=== PATIENT | female | born 1995 | race Caucasian/White ===

== ENCOUNTER → 2018-05-14 14:59 | Outpatient (CLI) | payer BC, SELFPAY ==
[2018-05-18 04:07] LABS: HSV 1 By PCR Negative (Negative)
[2018-05-18 11:23] LABS: HSV 2 By PCR Negative (Negative)
== END ==
PROVIDERS: Visit Provider Obstetrics & Gynecology
DX: Z11.3 Encounter for screening for infections with a predominantly sexual mode of transmission (principal); A60.04 Herpesviral vulvovaginitis
CPT/HCPCS: 87529

== ENCOUNTER → 2018-12-01 14:30 | Outpatient (CLI) | payer BC, SELFPAY ==
[2018-12-01 16:59] LABS: HIV - WCH Non-Reactive (Nonreactive)
[2018-12-01 17:41] LABS: Chlamydia Trachomatis by PCR Negative (Negative); Neisserai gonorrhoeae by PCR Negative (Negative); Probe Check PASS; Sample Adequacy Control PASS; Specimen Processing Control PASS
[2018-12-03 11:09] LABS: HEPATITIS B SURFACE AG Negative (Negative); Hep C Antibodies <0.1 s/co ratio (0.0-0.9)
[2018-12-04 02:51] LABS: Rapid Plasmin Reagin (RPR) NONREACTIVE (NONREACTIVE)
[2018-12-05 15:21] LABS: HPV Reflexed? NOT INDICATED
== END ==
PROVIDERS: Visit Provider Obstetrics & Gynecology
DX: Z12.4 Encounter for screening for malignant neoplasm of cervix (principal); Z11.3 Encounter for screening for infections with a predominantly sexual mode of transmission
CPT/HCPCS: 36415; 86592; 86703; 86803; 87340; 87491; 87591; 88175; G0145

== ENCOUNTER 2020-04-24 11:33 | Emergency (ER) | payer BC, SELFPAY ==
[2020-04-24 11:35] VITALS: BP 128/71; PULSE 86; RESP 18; TEMP 36.3; O2SAT 99; BMI 22.9
[2020-04-24 11:38] VITALS: BP 128/71; PULSE 87; RESP 18; O2SAT 99
--- NOTE | 2020-04-24 11:50 | US_ITS ---
STUDY: FIRST TRIMESTER OBSTETRICAL ULTRASOUND REASON FOR EXAM: Female, 24 years old RLQ PAIN 2 DAYS, POSITIVE TEST AT HOME, HCG 657, UNKNOWN TRUE LMP ESTIMATES 03/22/2020 LMP: 03/22/2020 TECHNIQUE: Transvaginal TECHNICAL QUALITY: Adequate. PRIOR ULTRASOUND: None. FINDINGS: There is visualization of a single gestational sac in a normal intrauterine position. The mean sac diameter (MSD) measures 2.8 mm, indicating an estimated gestational age (EGA) of 4 weeks, 5 days. The gestational sac shape is within normal limits. There is no demonstrated yolk sac. The placenta is non-visualized. There is no demonstrated embryo ( pole). The estimated gestation age (EGA) by LMP is 4 weeks, 5 days. The estimated date of delivery (SHAY) by LMP is 12/27/2020. The estimated gestation age (EGA) by US is 4 weeks, 5 days. The estimated date of delivery (SHAY) by US is 12/27/2020. The uterus measures 4.6 cm x 3.9 cm x 3.2 cm. There is no demonstrated uterine fibroid. The cervix is closed. The right ovary measures 3.1 cm x 2.5 cm x 2.1 cm. There is no right ovarian cyst. There is no visualized right adnexal mass or complex lesion. The left ovary measures 2.6 cm 3.5 cm x 1.9 cm. There is no left ovarian cyst. There is no visualized left adnexal mass or complex lesion. There is no fluid in the cul de sac. US/Transvaginal w/Preg US IMPRESSION: Intrauterine gestational sac without a yolk sac or pole corresponding to 4 weeks 5 days. Electronically Signed: Flo Armstrong, at 14:05 EDT , Service support ,
--- NOTE | 2020-04-24 11:51 | ED.DCSUM_ITS ---
History of Present Illness Chief Complaint: Abd Pain Informant: Patient Pain: - - R mid-abd pain Onset: Days - 2 Context: Gradual Onset Timing: Continuous Quality: Aching Location: - - R mid abd Current Severity: Moderate Maximum Severity: Moderate Worsened by: Movement Relieved by: Remaining Still Issue: Negative for: Vaginal bleeding, Passing clots, Passing tissue Associated Symptoms: Missed Period. Negative for: Dysuria, Frequency, Urgency, Hematuria Last known menstrual period: unk; pt provides confusing hx/info Test: Positive, Urine, Home Sexually: Active, Single Partner P: 0 Ab: 0 Narrative: In trying to determine the patient's last normal menstrual cycle, she provides conflicting information. Currently it is 04/24, she states that she missed last month but her last period was 3 or 4 weeks ago, but yet she does not remember the last time she had bleeding. Positive home test, called her OB but since she is having pain was directed to the ER to rule out ectopic. Past Medical History - Allergies and Home Meds Allergies/Adverse Reactions: Allergies No Known Allergies Allergy (Verified 04/24/20 11:34) Primary Care Physician: NOT,DEFINED [NON-STAFF] - Past Medical History: None Drugs: None Review of Systems General: Denies: Chills, Fever, Malaise - No lightheadedness or near syncope/syncope, Sweats Eyes: Denies: Visual changes - bilaterally, Diplopia ENT: Denies: Rhinorrhea, Sore throat Cardiovascular: Denies: Chest pain, Palpitations Respiratory: Denies: Dyspnea, Cough, Dyspnea on exertion Gastrointestinal: Reports: Abdominal pain, Nausea. Denies: Vomiting, Diarrhea, Melena, Hematochezia Genitourinary: Denies: Dysuria, Hematuria, Frequency Musculoskeletal: Denies: Back pain, Swelling, Extremity Pain Skin: Denies: Rash, Wounds Neurological: Denies: Headache, Weakness, Numbness Physical Exam Vital Signs/Narrative: Vital Signs Temp Pulse Resp BP Pulse Ox 04/24/20 11:38 87 18 128/71 H 99 04/24/20 11:35 97.4 F L 86 18 128/71 H 99 Inital Vital Signs reviewed: Yes General: Well nourished, Well developed, - - Well-appearing, no NAD Head: Normocephalic, Atraumatic Eyes: Perrl, EOMI ENT: Moist mucous membranes, No rhinorrhea Neck: Supple, Nontender Cardiovascular: Regular rate, Regular rhythm, No murmurs. Negative for: Tachycardia Respiratory: No distress, CTA bilaterally, Chest nontender Abdomen: Soft, Nondistended, Normal bowel sounds, No masses, Tender - Mild right mid abdomen. Nontender right upper quadrant and pelvis. Negative for: Guarding, Rebound tenderness, Miller's sign Back: Nontender, Normal Inspection. Negative for: CVA tenderness Extremities: Nontender, No edema Skin: Normal color, No rash, No Trauma Neurological: Alert, Oriented x3, Cranial nerves II-XII grossly intact, Normal Strength, Normal Sensation, Normal Gait Psychological: Normal affect, Normal Mood Diagnostic/Tx/Re-eval Clinical Impression(s) from Imaging Studies Obstetrics Ultrasound 04/24/20 11:50 IMPRESSION: Intrauterine gestational sac without a yolk sac or pole corresponding to 4 weeks 5 days. Electronically Signed: Flo Dimplearistideselizabeth, at 14:05 EDT , Service support , Laboratory Tests 04/24/20 04/24/20 04/24/20 Range/Units 12:48 12:15 12:15 WBC 7.0 (4.4-11.0) K/mm3 RBC 4.22 (4.2-5.4) M/mm3 Hgb 13.5 (12.0-15.0) g/dL Hct 40.1 (37-47) % MCV 95.0 (81-99) fL MCH 32.0 (27.0-32.0) pg MCHC 33.7 (32-36) g/dL RDW Std Deviation 41.7 (35.1-43.9) fl RDW Coeff of Ronny 11.9 (11.6-14.6) % Plt Count 170 (150-450) K/mm3 MPV 10.7 (6.2-12.0) fl Immature Gran % (Auto) 0.300 (0.0-0.9) % Neut % (Auto) 76.5 H (47-70) % Lymph % (Auto) 16.1 L (19-41) % Dougherty % (Auto) 6.4 (0-10) % Eos % (Auto) 0.6 (0-5) % Baso % (Auto) 0.1 (0-1) % Absolute Neuts (auto) 5.4 (2.0-7.7) X10^3/uL Absolute Lymphs (auto) 1.13 (0.83-4.51) X10^3/uL Nucleated RBC % 0 (0-5) % HCG, Quant 657 H (1-3) mIU/mL Urine Color Straw (Yellow) Urine Clarity Clear (Clear) Urine pH 6.5 (5.0 - 8.0) Ur Specific [place] 1.010 (1.002-1.030) Urine Protein Negative (Negative) mg/dl Urine Glucose (UA) Normal (Normal) mg/dl Urine Ketones Negative (Negative) mg/dl Urine Occult Blood Negative (Negative) /ul Urine Nitrite Negative (Negative) Urine Bilirubin Negative (Negative) mg/dL Urine Urobilinogen Normal (Normal) mg/dl Ur Leukocyte Esterase Negative (Negative) /ul Urine RBC 0 SEEN (0-5) /hpf Urine WBC 0 SEEN (0-5) /hpf Ur Squamous Epith Cells 0-5 SEEN (5-10) /hpf Urine Bacteria 1+ (None Seen) /hpf Urine Mucus 0 SEEN (<or=2+) /hpf - Treatment/Re-Evaluation Treatment: - - acetaminophen given for pain - Medical Decision/Diagnostic Studies Patient does have a positive test with a quant in the 600s. A transvaginal ultrasound was obtained, it shows an early single intra-uterine . No sign of a heterotopic . Her blood work and urinalysis are unremarkable. Unknown if her right-sided abdominal pain is related to this, or is muscular, I do not think she has appendicitis needs to be imaged further at this time. She is comfortable going home, and will follow-up with her OB. She is taking an [id number] vitamin that she was advised to continue. ED Disposition - Plan for ED Patient: Disposition: Home or Assisted Living Diagnosis: Right sided abdominal pain, at early stage Instructions: ED Abdominal Pain Unkn Cause Fem, : Your First Trimester Changes Referrals: Lily Phillip MD [STAFF PHYSICIAN] - 3-5 Days Additional Instructions: Continue taking vitamins until you see your OB doctor
[2020-04-24 12:25] LABS: Absolute Lymphocyte Count 1.13 X10^3/uL (0.83-4.51); Absolute Neutrophil Count 5.4 X10^3/uL (2.0-7.7); Basophil# 0.01 X10^3/uL; Basophil% 0.1 % (0-1); Eosinophil# 0.04 X10^3/uL; Eosinophils% 0.6 % (0-5); Hematocrit 40.1 % (37-47); Hemoglobin 13.5 g/dL (12.0-15.0); Lymphocyte # 1.13 X10^3/ul (4.0); Lymphocyte % 16.1 % (19-41); Mean Corp Hgb Conc 33.7 g/dL (32-36); Mean Platelet Vol. 10.7 fl (6.2-12.0); Monocyte# 0.45 X10^3/uL; Monocyte% 6.4 % (0-10); NRBC Flagged by Analyzer 0 % (0-5); Neutrophil # 5.36 X10^3/uL (2.7-7.7); Neutrophil % 76.5 % (47-70); Platelet Count 170 K/mm3 (150-450); RBC Distribution Width CV 11.9 % (11.6-14.6); RBC Distribution Width SD 41.7 fl (35.1-43.9); Red Blood Count 4.22 M/mm3 (4.2-5.4)
[2020-04-24 12:51] LABS: hCG Titer Quant., Serum 657 mIU/mL (1-3)
[2020-04-24 12:52] LABS: Mucous, Urine 0 SEEN /hpf (<or=2+); Red Blood Cells-Urine 0 SEEN /hpf (0-5); White Blood Cells 0 SEEN /hpf (0-5)
[2020-04-24 13:01] LABS: Color, Urine Straw (Yellow); Glucose, Dipstick Normal (Normal); Ketone-Dipstick Negative (Negative); Leukocyte Esterase-Dipstick Negative /ul (Negative); Nitrite-Dipstick Negative (Negative); Occult Blood-Urine Negative /ul (Negative); Protein-Dipstick Negative (Negative); Urine Bilirubin Dipstick Negative (Negative); Urine Clarity Clear (Clear); Urine Urobilinogen Normal (Normal); Urine pH 6.5 (5.0 - 8.0)
[2020-04-24 13:12] LABS: Bacteria 1+ /hpf (None Seen); Squamous Epithelial Cells - UA 0-5 SEEN /hpf (5-10)
[2020-04-24 14:06] VITALS: BP 100/62; PULSE 70; RESP 18; O2SAT 100
== END 2020-04-24 14:07 | disposition home or self-care (01) ==
PROVIDERS: Emergency Provider Emergency Medicine; PCP Internal Medicine
DX: O26.891 Other specified pregnancy related conditions, first trimester (principal); R10.31 Right lower quadrant pain; Z3A.00 Weeks of gestation of pregnancy not specified; Z3A.01 Less than 8 weeks gestation of pregnancy
CPT/HCPCS: 76817; 81001; 84702; 85025; 99283; A4216

== ENCOUNTER → 2020-05-17 15:02 | Outpatient (CLI) | payer BC, SELFPAY ==
[2020-04-24 11:35] VITALS: BMI 22.9
[2020-05-17 15:35] LABS: Absolute Lymphocyte Count 0.86 X10^3/uL (0.83-4.51); Absolute Neutrophil Count 10.4 X10^3/uL (2.0-7.7); Basophil# 0.01 X10^3/uL; Basophil% 0.1 % (0-1); Eosinophil# 0.02 X10^3/uL; Eosinophils% 0.2 % (0-5); Hematocrit 39.8 % (37-47); Hemoglobin 13.8 g/dL (12.0-15.0); Lymphocyte # 0.86 X10^3/ul (4.0); Lymphocyte % 7.1 % (19-41); Mean Corp Hgb Conc 34.7 g/dL (32-36); Mean Corpuscular Hgb 32.5 pg (27.0-32.0); Mean Corpuscular Volume 93.6 fL (81-99); Mean Platelet Vol. 11.4 fl (6.2-12.0); Monocyte# 0.77 X10^3/uL; Monocyte% 6.4 % (0-10); NRBC Flagged by Analyzer 0 % (0-5); Neutrophil # 10.39 X10^3/uL (2.7-7.7); Neutrophil % 85.9 % (47-70); Platelet Count 143 K/mm3 (150-450); RBC Distribution Width CV 11.7 % (11.6-14.6); RBC Distribution Width SD 40.3 fl (35.1-43.9); Red Blood Count 4.25 M/mm3 (4.2-5.4); White Blood Count 12.1 K/mm3 (4.4-11.0)
[2020-05-17 15:37] LABS: Color, Urine Yellow (Yellow); Glucose, Dipstick Normal (Normal); Leukocyte Esterase-Dipstick 25 /ul (Negative); Nitrite-Dipstick Negative (Negative); Occult Blood-Urine Negative /ul (Negative); Protein-Dipstick 15 mg/dl (Negative); Urine Bilirubin Dipstick Negative (Negative); Urine Clarity Sl. Cloudy (Clear); Urine Urobilinogen Normal (Normal); Urine pH 6.5 (5.0 - 8.0)
[2020-05-17 15:48] LABS: Amphetamine Urine VISTA NEGATIVE (<1000 ng/mL); Barbiturate Urine VISTA NEGATIVE (< 200 ng/mL); Benzodiazepine Urine VISTA NEGATIVE (< 200 ng/mL); Cocaine Urine VISTA NEGATIVE (< 300 ng/mL); Ecstacy Urine VISTA NEGATIVE (< 500 ng/mL); Methadone Urine VISTA NEGATIVE (< 300 ng/mL); PCP Urine VISTA NEGATIVE (< 25 ng/mL); THC Urine VISTA POSITIVE (< 50 ng/mL); Vista UDS pH Range 6
[2020-05-17 15:55] LABS: Ketone-Dipstick 150 mg/dl (Negative)
[2020-05-17 17:44] LABS: Thyroid Stim Hormone (TSH) 0.76 uIU/mL (0.358-3.74)
[2020-05-18 01:34] LABS: Prenatal RPR NONREACTIVE (NONREACTIVE)
[2020-05-18 10:42] LABS: HIV - WCH Non-Reactive (Nonreactive); Hepatitis B Surface Antigen Non-Reactive (Nonreactive); Hepatitis C Antibody Non-Reactive (Nonreactive); Rubella IgG 180.6 IU/mL
[2020-05-23 07:44] LABS: Chlamydia By Nucleic Acid AMP Negative (Negative)
[2020-05-23 08:03] LABS: Gonococcus By Nucleic Acid AMP Negative (Negative)
== END ==
PROVIDERS: PCP Internal Medicine; Visit Provider Obstetrics & Gynecology
DX: Z34.81 Encounter for supervision of other normal pregnancy, first trimester (principal); Z11.3 Encounter for screening for infections with a predominantly sexual mode of transmission
CPT/HCPCS: 36415; 80307; 81002; 84443; 85025; 86703; 86762; 86803; 87340; 87491; 87591

== ENCOUNTER → 2020-07-18 10:10 | Outpatient (CLI) | payer BC, SELFPAY ==
[2020-07-24 16:08] LABS: AFP MoM Value 1.69 (.); AFP Value-EIA 57.4 ng/mL (.); Comment Report (.); DIA MoM Value 1.79 (.); DIA Value-EIA 305.85 pg/mL (.); DSR (By Age) 982 (.); DSR (Second Trimester) 9655 (.); Gestat. Age Based On As provided (.); Insulin Dep Diabetes No (.); hCG MoM 0.39 (.); hCG Value 16767 mIU/mL (.)
[2020-07-24 17:27] LABS: CF, Screen Comment: (.)
== END ==
PROVIDERS: PCP Internal Medicine; Visit Provider Obstetrics & Gynecology
DX: Z34.02 Encounter for supervision of normal first pregnancy, second trimester (principal)
CPT/HCPCS: 36415; 81220; 82105; 82677; 84702

== ENCOUNTER → 2020-08-08 09:34 | Outpatient (CLI) | payer BC, SELFPAY ==
[2020-08-08 10:41] LABS: Platelet Count 111 K/mm3 (150-450)
[2020-08-08 10:52] LABS: Prothrombin Time (Protime)PT. 12.5 SECONDS (11.7-14.9)
[2020-08-08 10:53] LABS: Partial Thromboplast Time 25.1 Seconds (24.1-36.2)
== END ==
PROVIDERS: PCP Internal Medicine; Visit Provider Obstetrics & Gynecology
DX: D69.6 Thrombocytopenia, unspecified (principal)
CPT/HCPCS: 36415; 85049; 85610; 85730

== ENCOUNTER → 2020-09-05 10:27 | Outpatient (CLI) | payer BC, SELFPAY ==
[2020-09-05 11:45] LABS: Platelet Count 151 K/mm3 (150-450)
== END ==
PROVIDERS: PCP Internal Medicine; Visit Provider Obstetrics & Gynecology
DX: O99.112 Other diseases of the blood and blood-forming organs and certain disorders involving the immune mechanism complicating pregnancy, second trimester (principal); D69.6 Thrombocytopenia, unspecified; Z3A.00 Weeks of gestation of pregnancy not specified
CPT/HCPCS: 36415; 85049

== ENCOUNTER → 2020-10-03 13:14 | Outpatient (CLI) | payer BC, SELFPAY ==
[2020-10-03 13:46] LABS: Hemoglobin 11.9 g/dL (12.0-15.0); Mean Corpuscular Hgb 32.2 pg (27.0-32.0); Mean Corpuscular Volume 94.6 fL (81-99); Mean Platelet Vol. 11.3 fl (6.2-12.0); Platelet Count 145 K/mm3 (150-450); RBC Distribution Width SD 41.8 fl (35.1-43.9); White Blood Count 9.9 K/mm3 (4.4-11.0)
[2020-10-03 14:29] LABS: Glucose Challenge Gest 1H 50g 106 mg/dL (70-140)
== END ==
PROVIDERS: PCP Internal Medicine; Visit Provider Student in an Organized Health Care Education/Training Program
DX: Z34.82 Encounter for supervision of other normal pregnancy, second trimester (principal)
CPT/HCPCS: 36415; 82950; 85027

== ENCOUNTER 2025-05-09 15:41 | Emergency (ER) | payer BC, SELFPAY ==
[2025-05-09 15:42] VITALS: BP 105/82; PULSE 110; RESP 16; TEMP 37; O2SAT 97; BMI 23.9
--- NOTE | 2025-05-09 16:33 | ED.RN ---
states she needs to go feed her baby. lwbs
--- OUTSIDE RECORDS SUMMARY | 2025-05-09 19:04 | XMS RPT_ITS ---
Author Name Auto Generated Organization OHIP Support Name Relationship Address Phone NOT GIVEN Next of Kin Unknown Unavailable SHORADHA, JABARI Next of Kin [id number], [place] [phone] + NOT GIVEN Next of Kin Unknown Unavailable SHOULTS, JABARI Next of Kin [id number] [place] [phone] + NOT GIVEN Next of Kin Unknown Unavailable SHOULTS, JABARI Next of Kin [id number] [place] [phone] + NOT GIVEN Next of Kin Unknown Unavailable SHOULTS, JABARI Next of Kin [id number] [place] [phone] + NOT GIVEN Next of Kin Unknown Unavailable SHOULTS, JABARI Next of Kin [address] [phone] + NOT GIVEN Next of Kin Unknown Unavailable SHOULTS, JABARI Next of Kin [id number] [place] [address] [phone] + NOT GIVEN Next of Kin Unknown Unavailable SHOULTS, JABARI Next of Kin [address] [phone] + NOT GIVEN Next of Kin Unknown Unavailable SHOULTS, JABARI Next of Kin [address] [phone] + NOT GIVEN Next of Kin Unknown Unavailable SHOULTS, JABARI Next of Kin [address] [phone] + NOT GIVEN Next of Kin Unknown Unavailable SHOULTS, JABARI Next of Kin [phone] [place] [phone] + Care Team Providers Care Transcript Clerk Name Role Phone SPEARS, ANNE MARIE Primary Care Unavailable DAVID MITCHELL Attending Unavailable UPTAIN, CRYSTAL CNM Primary Care Unavailable UPTAIN, CRYSTAL CNM Attending Unavailable SPEARS, ANNE MARIE PAC Consulting Unavailable UPTAIN, CRYSTAL CNM Admitting Unavailable PROVIDER, UNKNOWN Consulting Unavailable SPEARS, ANNE MARIE PAC Consulting Unavailable SPEARS, ANNE MARIE PAC Attending Unavailable SPEARS, ANNE MARIE PAC Admitting Unavailable SPEARS, ANNE MARIE PAC Primary Care Unavailable PROVIDER, UNKNOWN Consulting Unavailable UPTAIN, CRYSTAL CNM Primary Care Unavailable UPTAIN, CRYSTAL CNM Attending Unavailable SPEARS, ANNE MARIE PAC Consulting Unavailable UPTAIN, CRYSTAL CNM Admitting Unavailable PROVIDER, UNKNOWN Consulting Unavailable SPEARS, ANNE MARIE PAC Consulting Unavailable SPEARS, ANNE MARIE PAC Referring Unavailable CECI BONILLA Primary Care Unavailable CECI BONILLA Attending Unavailable IRENECECI Admitting Unavailable PROVIDER, UNKNOWN Consulting Unavailable SPEARS, ANNE MARIE PAC Consulting Unavailable SPEARS, ANNE MARIE PAC Referring Unavailable PARAG BANUELOS DO Primary Care Unavailable PARAG BANUELOS DO Attending Unavailable PARAG BANUELOS DO Admitting Unavailable PROVIDER, UNKNOWN Consulting Unavailable UPTAIN, CRYSTAL CNM Primary Care Unavailable UPTAIN, CRYSTAL CNM Attending Unavailable SPEARS, ANNE MARIE PAC Consulting Unavailable UPTAIN, CRYSTAL CNM Admitting Unavailable PROVIDER, UNKNOWN Consulting Unavailable SPEARS, ANNE MARIE PAC Consulting Unavailable YOUNG GILES Primary Care Unavailable YOUNG GILES Attending Unavailable YOUNG GILES Admitting Unavailable PROVIDER, UNKNOWN Consulting Unavailable UPTAIN, CRYSTAL CNM Attending Unavailable SPEARS, ANNE MARIE PAC Consulting Unavailable UPTAIN, CRYSTAL CNM Admitting Unavailable UPTAIN, CRYSTAL CNM Primary Care Unavailable PROVIDER, UNKNOWN Consulting Unavailable YOUNG GILES Primary Care Unavailable YOUNG GILES Attending Unavailable YOUNG GILES Admitting Unavailable SPEARS, ANNE MARIE PAC Consulting Unavailable PROVIDER, UNKNOWN Consulting Unavailable SPEARS, ANNE MAREI PAC Consulting Unavailable JUVENTINO SOTO E Admitting Unavailable SEKOU SOTOKE E Primary Care Unavailable JUVNETINO SOTO E Attending Unavailable PROVIDER, UNKNOWN Consulting Unavailable JM Attending Unavailable PROBLEMS DATE TYPE CONDITION / CODE ATTENDING STATUS [facility] 05/09/2025 Active Tachycardia / R00.0(ICD-10) DAVID MITCHELL Active [facility] 05/09/2025 Active Fever, unspecifi ed fever cause / R50.9(ICD-10) DAVID MITCHELL Active [facility] 05/09/2025 Active Mastitis / N61.0(ICD-10) DAVID MITCHELL Active [facility] 03/14/2025 Admitting Diagnosis Gestational diabetes mellitus in , unspecified control / V94930(ICD-10) CONRAD RAMÍREZ Active [facility] 03/14/2025 Principle Diagnosis Gestational diabetes mellitus in , unspecified control / R68654(ICD-10) CONRAD SENA CNM Active [facility] 03/14/2025 Secondary Diagnosis Maternal care for other known or suspected poor growth, third trimester, not applicable or unspecified / [id number](ICD-10) CONRAD RAMÍREZ Active [facility] 03/14/2025 Secondary Diagnosis 37 weeks gestation of / Z3A37(ICD-10) [facility] 03/11/2025 Secondary Diagnosis 36 weeks gestation of / Z3A36(ICD-10) YOUNG GILES Active [facility] PROCEDURES No Procedure Records Found RESULTS URINALYSIS Collected: 8:30 PM Status: F Source: [facility] TYPE CODE TESTS RESULT OUT OF RANGE REFERENCE UNITS LAB URINALYSIS([place]) URINALYSIS Result Comment: URINALYSIS LAB Specimen Type(LOINC) Specimen Type R LAB Color(LOINC) Color monica NORMAL: YELLOW LAB Clarity(LOINC) Clarity clear TREMAINE L: CLEAR LAB ph(LOINC) ph 6 NORMAL: 5.0-8.0 LAB Protein(LOINC) Protein 30 Abnormal TREMAIEN L: NEGATIVE LAB Glucose(LOINC) Glucose NORM TREMAINE L: NORMAL LAB Ketone(LOINC) Ketone NEG NORMAL : NEGATIVE LAB Bilirubin(LOIN C) Bilirubin NEG NORMAL: NEGATIVE LAB Blood(LOINC) Blood NEG NORMAL: NEGATIVE LAB Urobilinog([place] NC) Urobilinog 1 Abnormal NORMAL: NORMAL LAB Sp [place](LOINC) Sp [place] 1.020 NORMAL: 1.010-1.030 LAB Nitrite(LOINC) Nitrite NEG TREMAINE L: NEGATIVE LAB Leukocytes(NIURKA NC) Leukocytes 100 Abnormal NORMAL: NEGATIVE LAB Microscopic(LO INC) Microscopic SEE BELOW Result Comment: MICROSCOPIC LAB Wbc(LOINC) Wbc 16-25 0-5/hpf LAB Rbc(LOINC) Rbc 0-5 0-3/hpf LAB Casts(LOINC) Casts NONE LAB Crystals(LOINC ) Crystals NONE LAB Amorphous(LOIN C) Amorphous NONE LAB Bacteria(LOINC ) Bacteria 1+ LAB Epi Cells(LOINC) Epi Cells FEW LAB Mucous(LOINC) Mucous NONE LAB Yeast(LOINC) Yeast NONE Performed By: #### [id number] ## ## [facility],[address] [place] [address] CMP WITH EGFR Collected: 5 8:15 PM Status: F Source: [facility] TYPE CODE TESTS RESULT OUT OF RANGE REFERENCE UNITS LAB CMP with eGFR(LOINC) CMP with eGFR Result Comment: COMPREHENSIV E METABOLIC PANEL LAB SODIUM(LOINC) SODIUM 137 136 - 145 mmol/l LAB POTASSIUM(LOIN C) POTASSIUM 3.8 3.5 - 5.1 mmol/L LAB CHLORIDE(LOINC ) CHLORIDE 101 98 - 107 mmol/L LAB CO2(LOINC) CO2 26.9 21.0 - 32.0 mmol/L LAB GLUCOSE(LOINC) GLUCOSE 102 74 - 106 mg/dl LAB BUN(LOINC) BUN 16 7 - 18 mg/dl LAB CREATININE([place] NC) CREATININE 0.74 0.55 - 1.02 mg/dl LAB AST/SGOT(LOINC ) AST/SGOT 15 13 - 39 U/L LAB ALK PHOS(LOINC) ALK PHOS 71 46 - 116 U/L LAB CALCIUM(LOINC) CALCIUM 8.4 Low 8.5 - 10.1 mg/dl LAB TOTAL PROTEIN(LOINC) TOTAL PROTEIN 6.8 6.4 - 8.2 g/dl LAB ALBUMIN(LOINC) ALBUMIN 3.5 3.4 - 5.0 g/dL LAB GLOBULIN(LOINC ) GLOBULIN 3.3 1.5 - 3.8 G/DL LAB A/G RATIO(LOINC) A/G RATIO 1.1 0.9 - 1.6 LAB TOTAL BILI(LOINC) TOTAL BILI 0.3 0.2 - 1.0 mg/dl LAB B/C RATIO(LOINC) B/C RATIO 22 0 - 30 ratio LAB ALT/SGPT(LOINC ) ALT/SGPT 21 16 - 63 U/L LAB ANION GAP(LOINC) ANION GAP 13 10 - 20 mmol/L LAB AGE(LOINC) AGE 29 years LAB eGFR(LOINC) eGFR >60 60 - 999 ML/MINUT E LAB eGFR(AA)(LOINC ) eGFR(AA) >60 60 - 999 ML/MINUT E Result Comment: ACCORDING TO THE NATIONAL KIDNEY DISEASE EDUCATION PROGRAM(NKDE), A NORMAL eGFR IS A VALUE GREATER THAN OR EQUAL TO 60 ML/MIN/1.73 SQ METERS. CHRONIC KIDNEY DISEASE: <60mL/MIN/1.73 SQ METERS KIDNEY FAILURE: <15mL/MIN/1.73 SQ METERS THIS TEST SHOULD ONLY BE USED FOR PATIENTS 18 YEARS OF AGE AND OLDER. Performed By: #### [id number] ## ## [address] [address] LACTATE Collected: 5 8:15 PM Status: F Source: [facility] TYPE CODE TESTS RESULT OUT OF RANGE REFERENCE UNITS LAB LACTATE(INC) LACTATE 0.4 0.4 - 2.0 mmol/L Performed By: #### [id number] ## ## [address] [address] CBC + DIFF Collected: 5 8:15 PM Status: F Source: [facility] TYPE CODE TESTS RESULT OUT OF RANGE REFERENCE UNITS LAB CBC + DIFF(LOINC) CBC + DIFF Result Comment: CBC-COMPLETE BLOOD COUNT LAB WBC(LOINC) WBC 8.7 4.5 - 10.8 x 10EE3/UL LAB RBC(LOINC) RBC 3.77 Low 4.10 - 5.30 x 10EE6/UL LAB HEMOGLOBIN([place] NC) HEMOGLOBIN 11.9 Low 12.0 - 16.0 g/dl LAB HEMATOCRIT([place] NC) HEMATOCRIT 33.8 Low 34.0 - 46.0 % LAB MCV(LOINC) MCV 90 80 - 99 fl LAB MCH(LOINC) MCH 32 27 - 33 pg LAB MCHC(LOINC) MCHC 35 32 - 36 X10 3 LAB RDW/CV(LOINC) RDW/CV 12.3 12.0 - 15.6 % LAB PLATELET(LOINC ) PLATELET 166 150 - 450 x10EE3/UL LAB MPV(LOINC) MPV 8.6 6.6 - 10.5 fl Result Comment: AUTOMATED DI FFERENTIAL LAB NEUT %(LOINC) NEUT % 85.9 High 46.0 - 76.0 % LAB LYMPH %(LOINC) LYMPH % 8.5 Low 20.0 - 45.0 % LAB MONOS %(LOINC) MONOS % 5.0 0.0 - 10.0 % LAB EO %(LOINC) EO % 0.6 0.0 - 7.0 % LAB BASO %(LOINC) BASO % 0.1 0.0 - 2.0 % LAB Lymph #(LOINC) Lymph # 0.74 Low 0.80 - 2.80 x10EE 3/UL LAB Neut #(LOINC) Neut # 7.49 High 1.50 - 7.10 x10EE3 /UL LAB [place] #(LOINC) [place] # 0.43 0.20 - 1.00 x10EE3 /UL LAB EO #(LOINC) EO # 0.05 0.00 - 0.50 x10EE3/U L LAB Baso #(LOINC) Baso # 0.01 0.00 - 0.10 x10EE3 /UL LAB MANUAL DIFF(LOINC) MANUAL DIFF N/A LAB MORPHOLOGY([place]) MORPHOLOGY N/A Performed By: #### [id number] ## ## [facility],[address] [place], [place] [id number] PROGRESS Observed: 05/09/2025 3:31 PM Status: COMPLETED Source: [facility] ID: [id number] Author: DAVID MITCHELL PA Service: ? Author Type: Physician Consumer Educator Type: Progress Notes Filed: 05/09/2025 15:34 Note Text: URGENT CARE LIOR [place] is a 29 year old female. Patient presents with: left breast pain: Possible mastitis left breast x 5 days HPI The patient is a 29-year-old female presenting with concerns of a possible clogged duct and associated flu-like symptoms. Possible Clogged Duct: - Delivered a baby in early March. - Reports soreness in one breast, suspecting a clogged duct. - No history of mastitis. - Continues to breastfeed. Flu-like Symptoms: - Onset of symptoms 5 days ago, including fever and chills. - Symptoms temporarily resolved on Friday but returned on Friday night and Friday. - Fevers not consistently recorded at home, but reports significant chills even in a warm environment (80 degreeF). - Avoids taking Tylenol or Motrin due to . Review of Systems Constitutional: (+) fever, (+) chills Breast: (+) breast pain Objective BP 110/64 Pulse 119 Temp (!) 38.4 ?C (101.2 ?F) (Tympanic) Resp 18 Wt 65.7 kg (144 lb 13.5 oz) SpO2 98% BMI 24.86 kg/m? Physical Exam Vitals and nursing note reviewed. Constitutional: General: She is not in acute distress. Appearance: Normal appearance. She is not toxic-appearing. HENT: Mouth/Throat: Mouth: Mucous membranes are moist. Cardiovascular: Rate and Rhythm: Regular rhythm. Tachycardia present. Pulmonary: Effort: Pulmonary effort is normal. Breath sounds: Normal breath sounds. Chest: Breasts: Left: Skin change and tenderness present. Comments: Tenderness, erythema and warmth noted to left medial breast. Skin: General: Skin is warm and dry. Neurological: Mental Status: She is alert. { 1. Mastitis (N61.0) 2. Tachycardia (R00.0) 3. Fever, unspecified fever cause (R50.9) - Acute mastitis with high fever and tachycardia - Advised evaluation in the emergency department for further workup - Explained rationale for ED referral due to severity of symptoms and need for prompt intervention. - Patient advised to continue . Recording using Parallel [employer] software for draft documentation of the visit was discussed with the patient/authorized sales representative gas service; all questions welcomed and answered. Patient/authorized sales representative gas service agreed to proceed .[facility] History and Record Review External record(s) reviewed: prior outpatient record. Systemic symptoms present included: Fever, chills Differential Diagnoses - Mastitis is more likely for the following reason(s): suggested by HANDP Procedures CNOV Observed: 05/09/2025 3:15 PM Status: COMPLETED Source: [facility] Office Visit ([facility]) LYNN [place] ([id number]) 1995 F Date Time Provider Department 05/09/25 3:15 PM DAVID MITCHELL During your visit today, we recorded the following information about you: Temperature Pulse Respiration Blood pressure 101.2 degrees 119/minute 18/minute 110/64 Weight 65.7 kg [place] PA 05/09/2025 3:34 PM Signed URGENT CARE LIOR Subjective Lynn [place] is a 29 year old female. Patient presents with: left breast pain: Possible mastitis left breast x 5 days HPI The patient is a 29-year-old female presenting with concerns of a possible clogged duct and associated flu-like symptoms. Possible Clogged Duct: - Delivered a baby in early March. - Reports soreness in one breast, suspecting a clogged duct. - No history of mastitis. - Continues to breastfeed. Flu-like Symptoms: - Onset of symptoms 5 days ago, including fever and chills. - Symptoms temporarily resolved on Friday but returned on Friday night and Friday. - Fevers not consistently recorded at home, but reports significant chills even in a warm environment (80 degreeF). - Avoids taking Tylenol or Motrin due to . Review of Systems Constitutional: (+) fever, (+) chills Breast: (+) breast pain Objective BP 110/64 Pulse 119 Temp (!) 38.4 ?C (101.2 ?F) (Tympanic) Resp 18 Wt 65.7 kg (144 lb 13.5 oz) SpO2 98% BMI 24.86 kg/m? Physical Exam Vitals and nursing note reviewed. Constitutional: General: She is not in acute distress. Appearance: Normal appearance. She is not toxic-appearing. HENT: Mouth/Throat: Mouth: Mucous membranes are moist. Cardiovascular: Rate and Rhythm: Regular rhythm. Tachycardia present. Pulmonary: Effort: Pulmonary effort is normal. Breath sounds: Normal breath sounds. Chest: Breasts: Left: Skin change and tenderness present. Comments: Tenderness, erythema and warmth noted to left medial breast. Skin: General: Skin is warm and dry. Neurological: Mental Status: She is alert. { 1. Mastitis (N61.0) 2. Tachycardia (R00.0) 3. Fever, unspecified fever cause (R50.9) - Acute mastitis with high fever and tachycardia - Advised evaluation in the emergency department for further workup - Explained rationale for ED referral due to severity of symptoms and need for prompt intervention. - Patient advised to continue . Recording using Par[employer] software for draft documentation of the visit was discussed with the patient/authorized sales representative gas service; all questions welcomed and answered. Patient/authorized sales representative gas service agreed to proceed .[facility] History and Record Review External record(s) reviewed: prior outpatient record. Systemic symptoms present included: Fever, chills Differential Diagnoses - Mastitis is more likely for the following reason(s): suggested by HANDP Procedures Allergies As of Date: 05/09/2025 (No Known Allergies) Date Reviewed: 05/09/2025 Reviewed by: Nat Soler LPN - Fully Assessed Reason for Visit: left breast pain [Other] Cmt: Possible mastitis left breast x 5 days Primary Visit Diagnosis:Tachycardia [R00.0] Other Visit Diagnoses:Fever, unspecified fever cause [R50.9] Mastitis [N61.0] Problem List As Of Date 05/09/2025 Noted Resolved Osteochondroma [D16.9] 09/12/2017 Anxiety [F41.9] 12/23/2017 Level of Service: OFFICE/OUTPATIENT NEW MODERATE MDM 45 MINUTES [43929] Encounter Status:Closed by DAVID MITCHELL on 05/09/25 CBC + DIFF Collected: 5 6:39 AM Status: F Source: [facility] TYPE CODE TESTS RESULT OUT OF RANGE REFERENCE UNITS LAB CBC + DIFF(LOINC) CBC + DIFF Result Comment: CBC-COMPLETE BLOOD COUNT LAB WBC(LOINC) WBC 10.9 High 4.5 - 10.8 x 10EE3/UL LAB RBC(LOINC) RBC 3.93 Low 4.10 - 5.30 x 10EE6/UL LAB HEMOGLOBIN([place]) HEMOGLOBIN 12.4 12.0 - 16.0 g/dl LAB HEMATOCRIT([place] NC) HEMATOCRIT 36.4 34.0 - 46.0 % LAB MCV(LOINC) MCV 93 80 - 99 fl LAB MCH(LOINC) MCH 32 27 - 33 pg LAB MCHC(LOINC) MCHC 34 32 - 36 X10 3 LAB RDW/CV(LOINC) RDW/CV 12.8 12.0 - 15.6 % LAB PLATELET(LOINC ) PLATELET 106 Low 150 - 450 x10EE3/UL LAB MPV(LOINC) MPV 9.9 6.6 - 10.5 fl Result Comment: AUTOMATED DI FFERENTIAL LAB NEUT %(LOINC) NEUT % 79.7 High 46.0 - 76.0 % LAB LYMPH %(LOINC) LYMPH % 13.7 Low 20.0 - 45.0 % LAB MONOS %(LOINC) MONOS % 5.4 0.0 - 10.0 % LAB EO %(LOINC) EO % 1.0 0.0 - 7.0 % LAB BASO %(LOINC) BASO % 0.2 0.0 - 2.0 % LAB Lymph #(LOINC) Lymph # 1.49 0.80 - 2.80 x10EE 3/UL LAB Neut #(LOINC) Neut # 8.67 High 1.50 - 7.10 x10EE3 /UL LAB [place] #(LOINC) [place] # 0.59 0.20 - 1.00 x10EE3 /UL LAB EO #(LOINC) EO # 0.11 0.00 - 0.50 x10EE3/U L LAB Baso #(LOINC) Baso # 0.02 0.00 - 0.10 x10EE3 /UL LAB MANUAL DIFF(LOINC) MANUAL DIFF N/A LAB MORPHOLOGY([place]) MORPHOLOGY N/A Performed By: #### [id number] ## ## [facility],[address] [place], [place] [id number] URINALYSIS Collected: 03/16/2025 5:40 PM Status: F Source: [facility] TYPE CODE TESTS RESULT OUT OF RANGE REFERENCE UNITS LAB URINALYSIS(LOIN C) URINALYSIS Result Comment: URINALYSIS LAB Specimen Type(LOINC) Specimen Type Catheter LAB Color(LOINC) Color p.yel NORMAL: YELLOW LAB Clarity(LOINC) Clarity clear NORMAL: CLEAR LAB ph(LOINC) ph 7 NORMAL: 5.0-8.0 LAB Protein(LOINC) Protein NEG TREMAINE L: NEGATIVE LAB Glucose(LOINC) Glucose NORM TREMAINE L: NORMAL LAB Ketone(LOINC) Ketone NEG NORMAL : NEGATIVE LAB Bilirubin(LOINC ) Bilirubin NEG NORMAL: NEGATIVE LAB Blood(LOINC) Blood NEG NORMAL: NEGATIVE LAB Urobilinog(LOIN C) Urobilinog NORM NORMAL: NORMAL LAB Sp [place](LOINC) Sp [place] 1.010 NORMAL: 1.010-1.030 LAB Nitrite(LOINC) Nitrite NEG TREMAINE L: NEGATIVE LAB Leukocytes(LOIN C) Leukocytes NEG NORMAL: NEGATIVE LAB Microscopic([place] NC) Microscopic NOT INDICATED Performed By: #### [id number] ## ## [facility],[address] [place] [address] FLUABV+SARS-COV-2+RSV PNL RE SP JEANNE+PROBE Observed: 03/16/2025 8:40 AM Status: F Source: [facility] SARS-COV-2 (AGENT OF COVID-1 9) RNA: Not detectedINFLUENZA A RNA: Not detectedINFLUENZA B RNA: Not detectedRESPIRATORY SYNCYTIAL VIRUS (RSV) RNA: Not detected Performed By: #### [id number] # ### [facility] CLIA [id number] [address] [place] [address] OF VARSHA CORONAVIRUS (SARS) ANTIGEN TEST Collect ed: 03/16/2025 8:40 AM Status: F Source: [facility] TYPE CODE TESTS RESULT OUT OF RANGE REFERENCE UNITS LAB SARS ANTIGEN(LOINC) SARS ANTIGEN NEGATIVE NORMAL: NEGATIVE LAB INTERNAL CONTROL(LOINC) INTERNAL CONTROL PASS LAB EXTERNAL QC DONE?(LOINC) EXTERNAL QC DONE? YES LAB SEND TO IC?(LOINC) SEND TO IC? NO Result Comment: SARS-CoV-2 THIS TEST IS BEING USED UNDER THE FDA EUA PROCEDURE. THIS ASSAY HAS BEEN VALIDATED AT [facility] FOR USE WITH NASAL AND NASOPHARYNGEAL SWAB SPECIMENS. INTERPRETIVE DATA TEST RESULTS SHOULD ALWAYS BE CONSIDERED IN THE CONTEXT OF CLINICAL OBSERVATIONS AND EPIDEMIOLOGICAL DATA IN MAKING FINAL DIAGNOSIS AND PATIENT MANAGEMENT DECISIONS. PATIENT MANAGEMENT SHOULD FOLLOW CURRENT CDC GUIDELINES. THE BRANDIN SARS ANTIGEN ANTHONY DOES NOT DIFFERENTIATE BETWEEN SARS-CoV & SARS-CoV-2. A POSITIVE TEST RESULT INDICATES THE PRESENCE OF SARS-CoV-2 NUCLEOCAPSID PROTEIN ANTIGEN, AND THE PATIENT IS INFECTED WITH THE VIRUS AND PRESUMED TO BE CONTAGIOUS. A NEGATIVE TEST RESULT FOR THIS TEST MEANS THAT SARS-CoV-2 NUCLEOCAPSID PROTEIN ANTIGEN WAS NOT PRESENT IN THE SPECIMEN ABOVE THE LIMIT OF DETECTION. HOWEVER, A NEGATIVE RESULT DOES NOT RULE OUT COVID-19 AND SHOULD NOT BE USED THE SOLE BASIS FOR TREATMENT OR PATIENT MANAGEMENT DECISIONS. A NEGATIVE RESULT DOES NOT EXCLUDE THE POSSIBILITY OF COVID-19. NEGATIVE RESULTS, FROM PATIENTS WITH SYMPTOM ONSET BEYOND FIVE DAYS, SHOULD BE TREATED PRESUMPTIVE AND CONFIRMATION WITH A MOLECULAR ASSAY, IF NECESSARY, FOR PATIENT MANAGEMENT, MAY BE PERFORMED. WHEN DIAGNOSTIC TESTING IS NEGATIVE, THE POSSIBLILTY OF A FALSE NEGATIVE RESULT SHOULD BE CONSIDERED IN THE CONTEXT OF A PATIENT'S RECENT EXPOSURES AND THE PRESENCE OF CLINICAL SIGNS AND SYMPTOMS CONSISTENT WITH COVID-19. THE POSSIBILITY OF A FALSE NEGATIVE RESULT SHOULD ESPECIALLY BE CONSIDERED IF THE PATIENT'S RECENT EXPOSURES OR CLINICAL PRESENTATION INDICATE THAT COVID-19 IS LIKELY, AND DIAGNOSTIC TESTS FOR OTHER CAUSES OF ILLNESS (e.g., OTHER RESPIRATORY ILLNESS) ARE NEGATIVE. IF COVID-19 IS STILL SUSPECTED BASED ON EXPOSURE HISTORY TOGETHER WITH OTHER CLINICAL FINDINGS, RE-TESTING SHOULD BE CONSIDERED BY HEALTHCARE PROVIDERS IN CONSULTATION WITH PUBLIC HEALTH AUTHORITIES. Performed By: #### [id number] ## ## [facility],[address] [place] [address] COVID, FLU A/B, RSV PCR ROUTINE [CCL] Collected: 03/16/2025 8:40 AM Status: F Source: [facility] TYPE CODE TESTS RESULT OUT OF RANGE REFERENCE UNITS LAB PCRFLA(LOINC) Influenza A RNA Not detected Not Detected LAB PCRFLB(LOINC) Influenza B RNA Not detected Not Detected LAB PCRRSV(LOINC) Respiratory syncytialvirus (RSV) RNA Not detected Not Detected Result Comment: Reference Ra nge (the expected result in uninfected individuals): Not detected [address] [address] Cipriano Casanova III, M.D. [id number] LAB [id number]([facility]) SARS-CoV-2 (Agent ofCOVID-19) RNA Not detected See comment LAB REF LAB RE(LOINC) REF LAB REPORT NEGATIVE See comment LAB SEND TO IC(LOINC) SEND TO IC? NO See comment Performed By: #### [id number] ## ## [address] [address] INFLUENZA VIRUS RAPID A/B Observed: 01/2025 8:40 AM Status: F Source: [facility] INFLUENZA A NEGATIVE INFLUENZA B NEGATIVE INTERNAL NEG QC PASS INTERNAL POS QC PASS EXTERNAL QC DONE? YES SEND TO IC? DEB NEGATIVE TEST RESULT DOES NOT EXCLUDE INFECTION WITH INFLUENZA A OR B. THEREFORE, THE RESULTS OBTAINED FROM THIS FLU TEST SHOULD BE USED IN CONJUCTION WITH CLINICAL FINDINGS TO MAKE AN ACCURATE DIAGNOSIS. A POSITIVE RESULT DOES NOT RULE OUT CO-INFECTIONS WITH OTHER PATHOGENS OR IDENTIFY ANY SPECIFIC INFLUENZA A VIRUS SUBTYPE.CO-INFECTION WITH INFLUENZA A AND B IS RARE. IT IS RECOMMENDED THAT "DUAL POSITIVE" RESULTS BE CONFIRMED BY VIRAL CULTURE OR AN FDA-CLEARED INFLUENZA A AND B MOLECULAR ASSAY. INDIVIDUALS WHO HAVE RECEIVED NASALLY ADMINISTERED INFLUENZA A VACCINE MAY TEST POSITIVE IN COMMERCIALLY AVAILABLE INFLUENZA RAPID DIAGNOSTIC TESTS FOR UP TO THREE DAYS. RESULT CRITICAL? NO Performed By: #### [id number] ## ## [address] [address] RSV Observed: 03/16/2025 8:40 AM Status: F Source: [facility] RSV NEGATIVE INTERNAL NEG QC PASS INTERNAL POS QC PASS EXTERNAL QC DONE? YES THIS TESTS IS INTENDED FOR IN VITRO DIAGNOSTIC USE TO AID IN THE DIAGNOSIS OF RESPIRATORY SYNCTYIAL VIRUS INFECTIONS IN AND PEDIATRIC PATIENTS UNDER THE AGE OF 5. IT IS RECOMMENDED THAT NEGATIVE TEST RESULTS BE CONFIRMED BY CELL CULTURE. Performed By: #### [id number] ## ## [address] [address] CBC + DIFF Collected: 8:11 AM Status: F Source: [facility] TYPE CODE TESTS RESULT OUT OF RANGE REFERENCE UNITS LAB CBC + DIFF(LOINC) CBC + DIFF Result Comment: CBC-COMPLET E BLOOD COUNT LAB WBC(LOINC) WBC 7.0 4.5 - 10.8 x 10EE3/UL LAB RBC(LOINC) RBC 3.95 Low 4.10 - 5.30 x 10EE6/UL LAB HEMOGLOBIN([place]) HEMOGLOBIN 13.1 12.0 - 16.0 g/dl LAB HEMATOCRIT([place] NC) HEMATOCRIT 36.9 34.0 - 46.0 % LAB MCV(LOINC) MCV 93 80 - 99 fl LAB MCH(LOINC) MCH 33 27 - 33 pg LAB MCHC(LOINC) MCHC 35 32 - 36 X10 3 LAB RDW/CV(LOINC) RDW/CV 13.0 12.0 - 15.6 % LAB PLATELET(LOINC ) PLATELET 135 Low 150 - 450 x10EE3/UL LAB MPV(LOINC) MPV 10.5 6.6 - 10.5 fl Result Comment: AUTOMATED DI FFERENTIAL LAB NEUT %(LOINC) NEUT % 77.8 High 46.0 - 76.0 % LAB LYMPH %(LOINC) LYMPH % 16.7 Low 20.0 - 45.0 % LAB MONOS %(INC) MONOS % 4.1 0.0 - 10.0 % LAB EO %(LOINC) EO % 1.3 0.0 - 7.0 % LAB BASO %(INC) BASO % 0.2 0.0 - 2.0 % LAB Lymph #(LOINC) Lymph # 1.17 0.80 - 2.80 x10EE 3/UL LAB Neut #(LOINC) Neut # 5.46 1.50 - 7.10 x10EE3 /UL LAB [place] #(LOINC) [place] # 0.29 0.20 - 1.00 x10EE3 /UL LAB EO #(LOINC) EO # 0.09 0.00 - 0.50 x10EE3/U L LAB Baso #(LOINC) Baso # 0.02 0.00 - 0.10 x10EE3 /UL LAB MANUAL DIFF([facility]) MANUAL DIFF N/A LAB MORPHOLOGY([place] NC) MORPHOLOGY N/A Performed By: #### [id number] ## ## [facility],[address] [place] [address] BB TYPE & SCREEN Collected: 03/16/2025 8:11 AM Statu s: F Source: [facility] TYPE CODE TESTS RESULT OUT OF RANGE REFERENCE UNITS LAB BB TYPE & SCREEN(LOINC) BB TYPE & SCREEN Result Comment: TYPE, Rh, AN D SCREEN LAB ABO(INC) ABO O LAB Rh(LOINC) Rh POS LAB ANTIBODY SCR([facility]) ANTIBODY SCR negative Performed By: #### [id number] ## ## [facility],[address] [place] [address] STREPTOCOCCUS, GROUP B CULTURE Collecte d: 03/07/2025 10:53 AM Status: F Source: [facility] TYPE CODE TESTS RESULT OUT OF RANGE REFERENCE UNITS LAB [id number] STREPTOCOCC US, GROUP B CULTURE SEE NOTE Result Comment: STREPTOCOCCUS, GROUP B CULTURE Micro Number: [id number] Test Status: Final Specimen Source: Vagina Specimen Quality: Adequate Result: No group B Streptococcus isolated Note per CDC guidelines optimal recovery is achieved by swabbing both the lower vagina and rectum (through the anal sphincter). Performed By: #### [id number] #### [facility] [address], [address] [place] [id number] Audit Officer: Ney Ahn MD TIBIA-FIBULA RT Observed: 01/10/2025 4:06 PM Status: F Source: [place] [id number] Patient: LYNN COLORADO Phone#: : 1995 Age: 29 Gender: F Pt. Type: Out Account: [id number] Location: [facility] Ordering: YOUNG GILES Exam Date: 01/10/2025/14:38 Family Phys: ANNE MARIE SPEARS Charge Code: [id number] Physician: Coke Order #: [id number] Dose#: PROCEDURE: X-RAY TIB FIB RT 2 VIEWS COMPARISON: None. INDICATIONS: Leg pain. FINDINGS: BONES: There is deformity of the proximal tibial metaphysis and fibula. Possibility of osteo chondroma should be considered. There is also deformity at the distal fibula and tibia with appearance suspicious for osteochondroma. The joints are maintained. There is no evidence of acute bone abnormality. SOFT TISSUES: Negative. No visible soft tissue swelling. EFFUSION: None visible. OTHER: Negative. CONCLUSION: 1. Bony deformity the proximal and distal tibial metaphyses and proximal and distal fibular metaphyses have appearance is suspicious for sessile osteochondromas. Dictated by: Marycruz Neri MD on 01/10/2025 at 16:03 Approved by: Marycruz Neri MD on 01/10/2025 at 16:05 GLUCOSE, GESTATIONAL SCREEN (50G)-135 CUTOFF Collected: 01/10/2025 9:19 AM Status: F Source: [facility] TYPE CODE TESTS RESULT OUT OF RANGE REFERENCE UNITS LAB [id number] GLUCOSE, GESTATIONAL SCREEN (50G)-135 CUTOFF 146 High <135 mg/dL Result Comment: One hour value of > or = 135 mg/dL indicates the need for a diagnostic 75 g dose 2-hour or 100 g dose 3-hour oral glucose tolerance test; patient fasting is required. Performed By: #### 510, [id number] #### [facility] [address], [address] [place] [address] Audit Officer: Ney Ahn MD HEMOGLOBIN Collected: 9:19 AM Status: F Source: [facility] TYPE CODE TESTS RESULT OUT OF RANGE REFERENCE UNITS LAB [id number] HEMOGLOBIN 12.7 Normal 11.7-15.5 g/dL Performed By: #### 510, [id number] #### [facility] [address], [address] [place], [place] [id number] Audit Officer: Ney Ahn MD ANKLE COMPLETE RT Observed: 01/09/2025 12:35 AM Status: F Source: [place] [id number] Patient: LYNN COLORADO Phone#: : 1995 Age: 29 Gender: F Pt. Type: ER Account: [id number] Location: [facility] Ordering: CECI BONILLA Exam Date: 01/08/2025/13:33 Family Phys: ANNE MARIE SPEARS Charge Code: [id number] Physician: Coke Order #: [id number] Dose#: PROCEDURE: X-RAY ANKLE COMPLETE RT MIN 3 VIEWS COMPARISON: None. INDICATIONS: Ankle injury. FINDINGS: BONES: Normal. No significant arthropathy or acute abnormality. Talar dome is intact. Joint space is maintained. No fracture or dislocation. Indeterminate undulating appearance of the lateral aspect of the distal tibia and medial aspect of distal fibula. SOFT TISSUES: Negative. No visible soft tissue swelling. EFFUSION: None visible. OTHER: Negative. CONCLUSION: 1. No acute osseous abnormality 2. Distal tibia and fibula nonspecific lobulated contour. Consider dedicated tibia and fibula radiograph for further visualization. Dictated by: Genesis Heller MD on 01/09/2025 at 0:32 Approved by: Genesis Heller MD on 01/09/2025 at 0:35 FOOT COMPLETE RT Observed: 01/09/2025 12:29 AM Status: F Source: [place] [id number] Patient: LYNN COLORADO Phone#: : 1995 Age: 29 Gender: F Pt. Type: ER Account: [id number] Location: [facility] Ordering: CCEI BONILLA Exam Date: 01/08/2025/13:27 Family Phys: ANNE MARIE SPEARS Charge Code: [id number] Physician: Coke Order #: [id number] Dose#: PROCEDURE: X-RAY FOOT RT COMPLETE MIN 3 VIEWS COMPARISON: None. INDICATIONS: Foot injury. FINDINGS: BONES: Nondisplaced fracture of the 1st distal phalanx, medial articular surface. First proximal phalanx is intact. Remaining osseous structures of the foot are unremarkable. Irregularity of the lateral aspect of the distal tibia. SOFT TISSUES: Soft tissue swelling of the 1st distal digit EFFUSION: None visible. OTHER: Negative. CONCLUSION: 1. Nondisplaced fracture of the base of the 1st distal phalanx 2. Irregularity of the distal tibia, lateral aspect. Incomplete the visualized on this exam. Recommend dedicated tib fib radiograph for further evaluation. Dictated by: Genesis Heller MD on 01/09/2025 at 0:26 Approved by: Genesis Heller MD on 01/09/2025 at 0:29 URINALYSIS Collected: 1:40 PM Status: F Source: [facility] TYPE CODE TESTS RESULT OUT OF RANGE REFERENCE UNITS LAB URINALYSIS([facility] [place]) URINALYSIS Result Comment: URINALYSIS LAB Specimen Type(LOINC) Specimen Type R LAB Color(LOINC) Color yellow NORMAL: YELLOW LAB Clarity(LOINC) Clarity clear TREMAINE L: CLEAR LAB ph(LOINC) ph 6.5 NORMAL: 5.0-8.0 LAB Protein(LOINC) Protein NEG TREMAINE L: NEGATIVE LAB Glucose(LOINC) Glucose NORM TREMAINE L: NORMAL LAB Ketone(LOINC) Ketone NEG NORMAL : NEGATIVE LAB Bilirubin(LOIN C) Bilirubin NEG NORMAL: NEGATIVE LAB Blood(LOINC) Blood NEG NORMAL: NEGATIVE LAB Urobilinog([facility]) Urobilinog NORM NORMAL: NORMAL LAB Sp [place](LOINC) Sp [place] 1.015 NORMAL: 1.010-1.030 LAB Nitrite(LOINC) Nitrite NEG TREMAINE L: NEGATIVE LAB Leukocytes([place]) Leukocytes 100 Abnormal NORMAL: NEGATIVE LAB Microscopic(LO INC) Microscopic SEE BELOW Result Comment: MICROSCOPIC LAB Wbc(LOINC) Wbc 1-5 0-5/hpf LAB Rbc(LOINC) Rbc NONE 0-3/hpf LAB Casts(LOINC) Casts NONE LAB Crystals(LOINC ) Crystals NONE LAB Amorphous(LOIN C) Amorphous NONE LAB Bacteria(LOINC ) Bacteria 1+ LAB Epi Cells(LOINC) Epi Cells MODERATE LAB Mucous(LOINC) Mucous NONE LAB Yeast(LOINC) Yeast NONE Performed By: #### [id number] ## ## [facility],[address] [place] [address] ED VISIT SUMMARY Observed: 01/08/2025 1:09 PM Status: C Source: [facility] Visit Overview [place] [address] [id number] 01/08/2025 Patient: LYNN COLORADO Sex: Female : 1995 Age: 29y 01/10/2025 09:43 AM EDT ED Arrival:13:09 01/08/2025 EDT Status: Recent Travel:no Language:eng Adv Directive: Isolation Status: Ethnicity:N Fall Risk:no risk Infectious Disease Exposure:no Measurements:5'6" / 167.6 Self-Harm Status:risk Sepsis Screen:negative cm 140.0 lb / 63.5 kg Chief Complaint:INJURY TO RIGHT FOOT, (00:00 01/08/2025), and (tripped and fell in a hole in her yard. c/o right foot pain. ) ALLERGIES No Known Drug Allergies HOME MEDICATIONS PAST MEDICAL HISTORY / PROBLEMS None 1 of 3 Visit Overview status: currently : due at the end of 3. P 2 See nurses notes PAST SURGICAL HISTORY No Surgeries SOCIAL HISTORY Smoking status: Yes Alcohol use: No Drug use: Yes ED COURSE MEDICATIONS GIVEN IN EMERGENCY DEPARTMENT IV SITE INFORMATION INTAKE OUTPUT REASSESMENT (most recent) 13:51 01/08/25. Ambulatory to room. GENERAL / NEURO / PSYCH: Oriented X 4. Alert. Appears in no acute distress. EXTREMITIES: Limited ROM present. Capillary refill is less than 2 seconds in the extremities. Extremity pulses are within normal limits. Extremities exhibit normal ROM. Limping gait. Neuro-vascular status intact to the extremity. Left ankle: tenderness and swelling. SKIN: Skin intact. Skin is warm and dry. VITAL SIGNS First Vitals Last Vitals Temp 13:13 01/08/25 97.2 F Temp 13:13 01/08/25 97.2 F BP 13:13 01/08/25 141/80 BP 13:13 01/08/25 141/80 HR 13:13 01/08/25 113 HR 13:13 01/08/25 113 RR 13:13 01/08/25 18 RR 13:13 01/08/25 18 O2 Sat 13:13 01/08/25 98% O2 Sat 13:13 01/08/25 98% Pain 13:13 01/08/25 9 Pain 13:13 01/08/25 9 2 of 3 Visit Overview First Vitals Last Vitals ETCO2 13:13 01/08/25 ETCO2 13:13 01/08/25 GCS 13:13 01/08/25 GCS 13:13 01/08/25 RTS 13:13 01/08/25 RTS 13:13 01/08/25 PROCEDURES NURSING INTERVENTIONS LABS / STUDIES LABS / STUDIES ORDERED Ankle R Complete Foot R Complete Urinalysis LABS / STUDIES PENDING IMPORT ANKLE COMPLETE RT FOOT COMPLETE RT CLINICAL IMPRESSION CONTUSION TO THE RIGHT ANKLE AND RIGHT FOOT DIFFICULTY WALKING WITH FALLING EPISODES FALL ON THE SAME LEVEL BY STUMBLING THIRD TRIMESTER 3 of 3 ED NURSES CLINICAL NOTE Observed: 2024 1:09 PM Status: C Source: [facility] Nurse Narrative Nurse Clinical Narrative [facility] [address] [address] [place] [address] [id number] 01/08/2025 13:09:00 Patient: LYNN COLORADO Sex: Female : 1995 Age: 29y Disposition: Discharge to Home Disposition Decision Time: 14:57 01/08/2025 Departure Time: 15:01 01/08/2025 TRIAGE Arrived by private vehicle. Historian: (patient). Triage time: 13:10 01/08/2025. Acuity: LEVEL 3. Chief Complaint: INJURY TO RIGHT FOOT. Occurred 00:00 01/08/2025. ( tripped and fell in a hole in her yard. c/o right foot pain.). SEPSIS SCREEN: NEGATIVE. SIRS criteria negative. No possible sources of infection. -- 13:14 01/08/25 EDT Stevo Curtis R.N. 13:13 01/08/25. BP: 141/80 MAP: 100. HR: 113. RR: 18. O2 saturation: 98% Temperature: 97.2 F. Pain level now 9/10. -- 13:13 01/08/25 EDT Stevo Curtis R.N. 13:17 01/08/25. ( contacted OB per Dr. Bonilla. spoke with Nicole HERNÁNDEZ, will consult with log preparer and call back.). -- 13:22 01/08/25 EDT Stevo Curtis R.N. Measurements: 13:14 01/08/25 Wt: 63.5 kg, Ht/Moises: 66.0 in, BMI: 22.60 -- 13:14 01/08/25 EDT Stevo Curtis R.N. Medications: -- 13:19 01/08/25 EDT Stevo Curtis R.N. 1 of 3 Nurse Narrative Allergies: no known drug allergies -- 13:12 01/08/25 EDT Stevo Curtis R.N. Problems: no known problem -- 13:01/08/25 EDT Stevo Curtis R.N. Surgeries: no known surgical history -- 13:12 01/08/25 CRISTOT Stevo Curtis R.N. History 13:01/08/25. PAST MEDICAL HX: status: currently : due at the end of 3. P 2. SOCIAL HX: Light tobacco smoker- less than 1/2 a pack per day. Occasional drug use: marijuana. No alcohol use. The patient has not traveled outside the [place] Infectious disease exposure: No infectious disease exposure. ABUSE ASSESSMENT: The patient answered "yes" to the question(s) "Do you feel safe in your home?" and "no" to the question(s) "Are you afraid to go home?". SELF HARM ASSESSMENT: Self harm assessment was performed. The patient answered no to the question(s) "Have you recently felt down, depressed, or hopeless?" and "Do you have thoughts of harming or killing yourself?". FALL RISK ASSESSMENT: Fall risk assessment completed. No risk factors identified. -- 13:14 01/08/25 YANETH Curtis R.N. Interventions 13:01/08/25. To room. -- 13:14 01/08/25 YANETH Curtis R.N. PHYSICAL ASSESSMENT 2 of 3 Nurse Narrative 13:51 01/08/25. Ambulatory to room. GENERAL / NEURO / PSYCH: Oriented X 4. Alert. Appears in no acute distress. EXTREMITIES: Limited ROM present. Capillary refill is less than 2 seconds in the extremities. Extremity pulses are within normal limits. Extremities exhibit normal ROM. Limping gait. Neuro-vascular status intact to the extremity. Left ankle: tenderness and swelling. SKIN: Skin intact. Skin is warm and dry. -- 13:51 01/08/25 YANETH Hennessy R.N. NURSING PROGRESS NOTES 13:48 01/08/25. heart tones: midline (141). -- 13:48 01/08/25 YANETH Hennessy R.N. 14:33 01/08/25. ( NST completed at bedside per OB). -- 14:33 01/08/25 YANETH Hennessy R.N. 15:00 01/08/25. ( Pt removed splint and refused crutches prior to discharge.). -- 17:21 01/08/25 EDT Shahana Hennessy R.N. DISPOSITION / DISCHARGE Departure time: 15:01 01/08/2025. Condition at departure: stable. ( pt removed splint and left it on the bed.). Treatments reviewed. Reviewed referrals. Patient verbalized understanding. The patient was discharged home. The patient left ambulatory and via private vehicle. Patient driving. -- 15:06 01/08/25 EDT Stevo Curtis R.N. (Electronically signed by Shahana Hennessy R.N. 01/08/25 18:09:52 EDT) Generated by [facility] 3 of 3 ED SUPER BILL Observed: 01/08/2025 1:09 PM Status: C Source: [address] [place] [address] [id number] 01/08/2025 Patient: LYNN COLORADO Sex: Female : 1995 Age: 29y Item Professional Category Description Facility Code Code Quantity Fee Total Nurse/E/M EMERGENCY 021166 1 $0.00 $0.00 DEPARTMENT VISIT LOW/MODER SEVERITY (99560-34) Grand Total $0.00 Providers Ceci Bonilla D.O. Chief Complaint Injury to right foot and right ankle and Chief Complaint- patient has had 2 falls last couple days she has had a Friday she was coming down the steps at 6:30 a.m. in the morning they were 2 steps outside and this step usually has not get wet but did get wet that day and she slipped on the 2nd step and fell she kind of injured her back area said she was sore the next day from her back to her neck. And that resolved she called her diagnostic tech doctor they wanted her to come in to get checked and she could not do this because she had other child & adolescent psychiatrist issues. And then yesterday she was walking and stepped in a gopher hole and when she did she twisted her right foot and ankle. She has no pain she is not putting weight on it is 8/10 when she does put weight on it. Her back pain has resolved. Denies any chest pain or shortness breath no nausea or vomiting. 1 of 2 Superbill And we will be wanted her to come in and get evaluated and she could not come in yesterday because of childcare issues she her baby has been moving around well she can feel this. And she did come in today because she has severe pain in her right foot and ankle whenever she moves. Principal Diagnosis Difficulty walking with falling episodes. Third trimester . Contusion to the right ankle and right foot. Fall on the same level by stumbling. ICD-10 Codes R26.2: Difficulty in walking, not elsewhere classified W01.0XXA: Fall on same level from slipping, tripping and stumbling without subsequent striking against object, initial encounter Z34.93: Encounter for supervision of normal , unspecified, third trimester Z3A.00: Weeks of gestation of not specified S90.01xA: Contusion of right ankle, initial encounter S90.31xA: Contusion of right foot, initial encounter 2 of 2 ED PHYSICIAN CLINICAL REPORT Observed: 01/08/2025 1:09 PM Status: C Source: [facility] Narrative Physician Clinical Narrative [address] [address] [id number] 01/08/2025 13:09:00 Patient: LYNN COLORADO Sex: Female : 1995 Age: 29y Disposition: Discharge to Home Disposition Decision Time: 14:57 01/08/2025 Departure Time: 15:01 01/08/2025 Measurements Wt: 63.5 kg, Ht/Moises: 66.0 in, BMI: 22.60 Initial Vital Sign Measured Time BP MAP HR RR O2Sat ETCO2 Temp Pain GCS RTS 13:13 01/08/2025 141/80 100 113 18 98% 97.2 F 9 Time Seen: 13:14 01/08/2025. Arrived- By private vehicle. Historian- patient. HISTORY OF PRESENT ILLNESS Chief Complaint: Injury to right foot and right ankle and Chief Complaint- patient has had 2 falls last couple days she has had a Friday she was coming down the steps at 6:30 a.m. in the morning they were 2 steps outside and this step usually has not get wet but did get wet that day and she slipped on the 2nd step and fell she kind of injured her back area said she was sore the next day from her back to her neck. And that resolved she called her diagnostic tech doctor they wanted her to come in to get checked and she could not do this because she had other child & adolescent psychiatrist issues. And then yesterday she was walking and stepped in a gopher hole and when she did she twisted her right foot and ankle. She has no pain she is not putting weight on it is 8/10 when she does put weight on it. Her back pain has resolved. Denies any chest pain or shortness breath no nausea or vomiting. And we will be wanted her to come in and get evaluated and she could not come in yesterday because of childcare issues she her baby has been moving around well she can feel this. And she did come in today because she has severe pain in her right foot and ankle whenever she moves. The injury happened 3 days. 1 of 6 Narrative Fell. The patient sustained a twisting injury. Occurred at home. Patient is experiencing severe pain. REVIEW OF SYSTEMS SKIN: No suspected foreign body or skin laceration. NEUROLOGICAL: No tingling, weakness or numbness. MUSCULOSKELETAL: The patient has had swelling. PAST HISTORY See nurses notes. no known problem Surgeries: no known surgical history Medications: Allergies: no known drug allergies SOCIAL HISTORY Current every day smoker. Drug use: marijuana. No alcohol use. ADDITIONAL NOTES The nursing notes have been reviewed. PHYSICAL EXAM Appearance: Alert. Oriented X3. Appears to be in pain. No acute distress. Head: Head atraumatic. Eyes: Pupils equal, round and reactive to light. Eyes normal inspection. ENT: Ears normal. Nose normal. 2 of 6 Narrative Neck: Normal inspection. Neck supple. CVS: Tachycardia. Normal heart rate and rhythm. Respiratory: No respiratory distress. Breath sounds normal. Abdomen: No visible injury. Distention (). Back: Normal inspection. Skin: Skin warm and dry. Normal skin color. Normal skin turgor. Extremities: Lower extremity soft-tissue tenderness present. No signs of infection involving the lower extremities. Right foot: moderate tenderness and swelling. Limited weight bearing secondary to pain. Neurovascular intact distally. No erythema, laceration, abrasion or ecchymosis. No avulsion. Extremities otherwise negative. Gait: The patient was unable to bear weight. Neuro, Vascular and Tendons: Sensation intact. Motor intact. Neuro: Oriented X 3. No motor deficit. LABS, X-RAYS, AND EKG Laboratory Tests: URINALYSIS Final FARA: 01/08/2025 13:40:00 EDT MsgRcvd: 01/08/2025 14:23 EDT Lab Test Result Reference Status Received Comments 01/08/2025 14:23 URINALYSIS Final URINALYSIS EDT 01/08/2025 14:23 Specimen Type R New Order EDT NORMAL: 01/08/2025 14:23 Color yellow Final YELLOW EDT NORMAL: 01/08/2025 14:23 Clarity clear Final CLEAR EDT NORMAL: 01/08/2025 14:23 ph 6.5 Final 5.0-8.0 EDT 3 of 6 Narrative Lab Test Result Reference Status Received Comments NORMAL: 01/08/2025 14:23 Protein NEG Final NEGATIVE EDT NORMAL: 01/08/2025 14:23 Glucose NORM Final NORMAL EDT NORMAL: 01/08/2025 14:23 Ketone NEG Final NEGATIVE EDT NORMAL: 01/08/2025 14:23 Bilirubin NEG Final NEGATIVE EDT NORMAL: 01/08/2025 14:23 Blood NEG Final NEGATIVE EDT NORMAL: 01/08/2025 14:23 Urobilinog NORM Final NORMAL EDT NORMAL: 01/08/2025 14:23 Sp [place] 1.015 Final 1.010-1.030 EDT NORMAL: 01/08/2025 14:23 Nitrite NEG Final NEGATIVE EDT 100 NORMAL: 01/08/2025 14:23 Leukocytes Final Abnormal NEGATIVE EDT 01/08/2025 14:23 Microscopic SEE BELOW Final MICROSCOPIC EDT 01/08/2025 14:23 Wbc 1-5 0-5/hpf Final EDT 01/08/2025 14:23 Rbc NONE 0-3/hpf Final EDT 01/08/2025 14:23 Casts NONE Final EDT 4 of 6 Narrative Lab Test Result Reference Status Received Comments 01/08/2025 14:23 Crystals NONE Final EDT 01/08/2025 14:23 Amorphous NONE Final EDT 01/08/2025 14:23 Bacteria 1+ Final EDT 01/08/2025 14:23 Epi Cells MODERATE Final EDT 01/08/2025 14:23 Mucous NONE Final EDT 01/08/2025 14:23 Yeast NONE Final EDT PROGRESS AND PROCEDURES Splint Application: OCL splint applied to right foot, ankle and lower leg. Splinting applied by me. MEDICAL DECISION MAKING: (patient has had 2 falls last couple days she has had a Friday she was coming down the steps at 6:30 a.m. in the morning they were 2 steps outside and this step usually has not get wet but did get wet that day and she slipped on the 2nd step and fell she kind of injured her back area said she was sore the next day from her back to her neck. And that resolved she called her diagnostic tech doctor they wanted her to come in to get checked and she could not do this because she had other child & adolescent psychiatrist issues. And then yesterday she was walking and stepped in a gopher hole and when she did she twisted her right foot and ankle. She has no pain she is not putting weight on it is 8/10 when she does put weight on it. Her back pain has resolved. Denies any chest pain or shortness breath no nausea or vomiting. And we will be wanted her to come in and get evaluated and she could not come in yesterday because of childcare issues she her baby has been moving around well she can feel this. And she did come in today because she has severe pain in her right foot and ankle whenever she moves. patient had x-rays of her foot and ankle which I see no obvious fracture. I did place her in a splint. I also wrote her for crutches. She declined the crutches. Risks and benefits were explained. She is also told not to drive while using the splint. We did have her checked by OB and and that went well. Her urinalysis is unremarkable she has minimal white cells. Plus two bacteria. However she does have epithelial cells. She has no symptoms of urinary tract infection no urinary frequency urgency. She has been multiple antibiotics for urinary tract infection at this 5 of 6 Narrative time and not suspect she has one. She will be discharged home with a diagnosis status post fall acute right foot and ankle contusion back pain contusion by history. .). Disposition: Condition: stable. Discharged in fair condition. Discharge decision based on the following: patient's condition is stable; patient's exam is stable. CLINICAL IMPRESSION Difficulty walking with falling episodes. Third trimester . Contusion to the right ankle and right foot. Fall on the same level by stumbling. DISCHARGE INSTRUCTIONS Apply ice. Wear splint. Elevate affected areas above chest level. (Tylenol for pain.). Follow-up with: Juventino Sutton PA-C, [facility], [facility], Phone: [phone], [address], [place] [address]. (rest. ice 15 minutes every 4-[address] using the splint on your leg. return if any problems or concerns. Good luck with the rest of your !). (Electronically signed by Ceci Bonilla D.O. 01/09/25 00:25:20 EDT) Addendum Radiology report reviewed. Patient contacted.I did notify the patient of the great toe nondisplaced fracture she was not even tender there she states. And also the irregularity of the tib-fib area. She was going to see her family doctor Dr. Giles today. I did ask her to ask Dr. iGles take a look at the reports which she said she would do so. -- 01/10/25 09:43:08 EDT Ceci Bonilla D.O. Generated by [facility] 6 of 6 ED ORDER SHEET (CPOE ONLY) Observed: 1:09 PM Status: C Source: [facility] Order Sheet Order Sheet [address] [address] [id number] 01/08/2025 Patient: LYNN COLORADO Sex: Female : 1995 Age: 29y MEASUREMENTS: Wt: 63.5 kg, Ht/Moises: 66.0 in, BMI: 22.60 ALLERGIES: No known drug allergies MEDICATION/IV/DRIP/FLUID ORDERS Order Description Priority Entered Acknowledged Completed LAB ORDERS Order Description Priority Entered Acknowledged Collected Completed Urinalysis Stat Stat 13:19 01/08/2025 13:40 01/08/2025 13:45 01/08/2025 Shahana Collier R.N. Tessa Miller, R.N. D.OYara DIAGNOSTIC STUDY ORDERS Order Description Priority Entered Acknowledged Completed Foot R Complete Stat Stat 13:27 01/08/2025 13:40 13:45 Ceci Bonilla 01/08/2025 01/08/2025 Shahana Keenan R.N. R.N. Reason for Study: Foot/Heel Injury Ankle R Complete Stat Stat 13:27 01/08/2025 13:40 13:45 Ceci Bonilla, 01/08/2025 01/08/2025 Shahana Keenan, 1 of 2 Order Sheet R.Floyd Santos Reason for Study: Ankle Injury STAFF ORDERS Order Description Priority Entered Acknowledged Collected Completed Crutches 13:57 01/08/2025 13:57 01/08/2025 13:57 01/08/2025 Shahana Collier R.N. Tessa Miller, R.N. D.O. [Electronically signed by Ceci Bonilla D.O. (01/09/2025 00:25 EDT)] 2 of 2 ED VITALS FLOW SHEET Observed: 1:09 PM Status: C Source: [facility] Vitals Vital Sign Flow Sheet [address] [address] [id number] 01/08/2025 Patient: LYNN COLORADO Sex: Female : 1995 Age: 29y Measurements Wt: 63.5 kg, Ht/Moises: 66.0 in, BMI: 22.60 Measured Time BP MAP HR RR O2Sat ETCO2 Temp Pain GCS RTS 13:13 01/08/2025 141/80 100 113 18 98% 97.2 F 9 1 of 1 ED MED ADMINISTRATION DETAIL Observed: 0 01/08/2025 1:09 PM Status: C Source: [facility] Gristmill Operator Medication Administration Record [address] [address] [id number] 01/08/2025 Patient: LYNN COLORADO Sex: Female : 1995 Age: 29y MEASUREMENTS: Wt: 63.5 kg, Ht/Moises: 66.0 in, BMI: 22.60 ALLERGIES: No known drug allergies Medication Ordered Medication Administration Date/Time 1 of 1 HERPES SIMPLEX VIRUS CULTURE W/RFL TO TYPING Collected: 11/03/2024 11:29 AM Status: F Source: [facility] TYPE CODE TESTS RESULT OUT OF RANGE REFERENCE UNITS LAB [id number] HERPES SIMPLEX VIRUS CULTURE W/RFL TO TYPING SEE NOTE Result Comment: HERPES SIMPLEX VIRUS CULTURE W/RFL TO TYPING Micro Number: [id number] Test Status: Final Specimen Source: Vulva lesion Specimen Quality: Adequate HSV Culture: Not Isolated Performed By: #### [id number] #### [facility] [address], [address] [place], [place] [address] Audit Officer: Ney Ahn MD RPR (DX) W/REFL TITER AND T. PALLIDUM AB, [place] Collected: 11/03/2024 11:29 AM Status: F Source: [facility] TYPE CODE TESTS RESULT OUT OF RANGE REFERENCE UNITS LAB [id number] RPR (DX) W/REFL TITER AND CONFIRMATORY TESTING NON-REACTIVE Normal NON-REACTIVE Result Comment: No laboratory evidence of syphilis. If recent exposure is suspected, submit a new sample in 2-4 weeks. Performed By: #### [id number] ### # [facility] [address], [address] [place], [place] [address] Audit Officer: Ney Ahn MD CHLAMYDIA/N. GONORRHOEAE RNA , TMA, UROGENITAL Collected: 11/03/2024 11:27 AM Status: F Source: [facility] TYPE CODE TESTS RESULT OUT OF RANGE REFERENCE UNITS LAB [id number] CHLAMYDIA TRACHOMATIS RNA, TMA, UROGENITAL NOT DETECTED Normal NOT DETECTED LAB [id number] NEISSERIA GONORRHOEAE RNA, TMA, UROGENITAL NOT DETECTED Normal NOT DETECTED LAB [id number] COMMENT Result Comment: The analytic al performance characteristics of this assay, when used to test SurePath(TM) specimens have been determined by [employer]. The modifications have not been cleared or approved by the FDA. This assay has been validated pursuant to the CLIA regulations and is used for clinical purposes. For additional information, please refer to https://education.Box Score Games/faq/RBS063 (This link is being provided for information/ educational purposes only.) Performed By: #### 83906 ### # [facility] [address], [address] [place] [address] Audit Officer: Ney Ahn MD OB INITIAL< 14 WEEKS; 1ST GESTATION Observed: 10/01/2024 11:23 AM Status: F Source: [place] [id number] Patient: LYNN COLORADO Phone#: : 1995 Age: 28 Gender: F Pt. Type: Out Account: [id number] Location: [facility] Ordering: Taboola Exam Date: 10/01/2024/10:54 Family Phys: ANNE MARIE SPEARS Charge Code: 762424 Physician: Coke Order #: [id number] Dose#: PROCEDURE: OB INITIAL <14 WEEKS ULTRASOUND, TRANSABDOMINAL COMPARISON: None. INDICATIONS: First trimester bleeding TECHNIQUE: Transabdominal pelvic ultrasound examinations were performed. FINDINGS: GESTATIONAL SAC: Present and normal appearing. POLE: Present and normal appearing. BPD: 13 weeks 4 days, 2.2 cm Head circumference: 13 weeks 6 days, 8.7 cm Abdominal circumference: 13 weeks 4 days, 6.9 cm Femur length: 13 weeks 2 days, 1.1 cm YOLK SAC: Not visualized CARDIAC ACTIVITY: Present. 155 beats per minute UTERUS: Normal. Uterus measures 14.2 x 7.4 x 9.8 cm. ADNEXAE/OVARIES: Normal. Right ovary measures 3.1 x 1.8 x 2.2 cm. Left ovary measures 3.7 x 1.8 x 2.8 cm. CUL-DE-SAC: Normal. CERVICAL LENGTH: 4.7 cm CLINICAL AGE: 13 weeks 1 day, estimated date of delivery 04/07/2025. SONOGRAPHIC AGE: 13 weeks 4 days, 04/04/2025. PLACENTA: Posterior. No retroplacental fluid collection. AMNIOTIC FLUID VOLUME: Normal for age. OTHER: Negative. CONCLUSION: 1. Single live intrauterine gestation measuring 13 weeks 4 days with estimated date of delivery of 04/04/2025 Dictated by: Genesis Heller MD on 10/01/2024 at 13:24 Approved by: Genesis Heller MD on 10/01/2024 at 13:28 CHLAMYDIA/N. GONORRHOEAE RNA , TMA, UROGENITAL Collected: 09/29/2024 11:56 AM Status: F Source: [facility] TYPE CODE TESTS RESULT OUT OF RANGE REFERENCE UNITS LAB [id number] CHLAMYDIA TRACHOMATIS RNA, TMA, UROGENITAL NOT DETECTED Normal NOT DETECTED LAB [id number] NEISSERIA GONORRHOEAE RNA, TMA, UROGENITAL DETECTED Abnormal NOT DETECTED Result Comment: If results do not correlate with clinical findings, testing using an alternate molecular target which amplifies different genetic sequences can be performed on the same sample for result confirmation within 7 days of sample receipt or per performing laboratory specimen retention policy. Alternate target testing is available; 39503 (C. trachomatis) or 86377 (N. gonorrhoeae). LAB [id number] COMMENT Result Comment: The analytic al performance characteristics of this assay, when used to test SurePath(TM) specimens have been determined by [employer]. The modifications have not been cleared or approved by the FDA. This assay has been validated pursuant to the CLIA regulations and is used for clinical purposes. For additional information, please refer to https://education.Box Score Games/faq/PVJ333 (This link is being provided for information/ educational purposes only.) Performed By: #### 395, 1136 3 #### [facility] [address], [address] [place] [address] Audit Officer: Ney Ahn MD CULTURE, URINE, ROUTINE Collected: 09/11 11:56 AM Status: F Source: [facility] TYPE CODE TESTS RESULT OUT OF RANGE REFERENCE UNITS LAB [id number] CULTURE, URINE, ROUTINE SEE NOTE Abnormal Result Comment: CULTURE, URINE, ROUTINE Micro Number: [id number] Test Status: Final Specimen Source: Urine Specimen Quality: Adequate Result: Greater than 100,000 CFU/mL of Group B Streptococcus isolated Beta-hemolytic streptococci are predictably susceptible to Penicillin and other beta-lactams. Susceptibility testing not routinely performed. Please contact the laboratory within 3 days if susceptibility testing is desired. Comment: Erythromycin and clindamycin are not recommended for treatment of urinary tract infections, but clindamycin may be useful for treatment of rectovaginal colonization or infection. Any amount of group B Streptococcus in urine specimens obtained from females is a marker of genital tract colonization. If this patient is , please refer to ACOG guidelines for appropriate screening and management of women. Performed By: #### 395, 1136 3 #### [facility] [address], [address] [place] [address] Audit Officer: Ney Ahn MD OBSTETRIC PANEL Collected: 5 3:23 PM Status: F Source: [facility] TYPE CODE TESTS RESULT OUT OF RANGE REFERENCE UNITS LAB [id number] WHITE BLOOD CELL COUNT 9.3 Normal 3.8-10.8 [place] d/uL LAB [id number] RED BLOOD CELL COUNT 4.42 Normal 3.80-5.10 Million /uL LAB [id number] HEMOGLOBIN 13.9 Normal 11.7-15.5 g/dL LAB [id number] HEMATOCRIT 42.0 Normal 35.0-45.0 % LAB [id number] MCV 95.0 Normal 80.0-100.0 fL LAB 11707556 MCH 31.4 Normal 27.0-33.0 pg LAB [id number] MCHC 33.1 Normal 32.0-36.0 g/dL Result Comment: For adults, a slight decrease in the calculated MCHC value (in the range of 30 to 32 g/dL) is most likely not clinically significant; however, it should be interpreted with caution in correlation with other red cell parameters and the patient's clinical condition. LAB [id number] RDW 11.9 Normal 11.0-15.0 % LAB [id number] PLATELET COUNT 190 Normal 140-400 [place] d/uL LAB 16851629 MPV 12.1 Normal 7.5-12.5 fL LAB 76120941 ABSOLUTE NEUTROPHILS 7840 High 6237-0295 cells/u L LAB [id number] ABSOLUTE LYMPHOCYTES 930 Normal 850-3900 cells/u L LAB [id number] ABSOLUTE MONOCYTES 484 Normal 200-950 cells/u L LAB [id number] ABSOLUTE EOSINOPHILS 28 Normal 15-500 cells/u L LAB [id number] ABSOLUTE BASOPHILS 19 Normal 0-200 cells/u L LAB [id number] NEUTROPHILS 84.3 Normal % LAB [id number] LYMPHOCYTES 10.0 Normal % LAB [id number] MONOCYTES 5.2 Normal % LAB 76782231 EOSINOPHILS 0.3 Normal % LAB 13369874 BASOPHILS 0.2 Normal % LAB [id number] ANTIBODY SCREEN, RBC W/REFL ID, TITER AND AG NO ANTIBODIES DETECTED Normal Result Comment: Reference ra nge No antibodies detected This assay is a screening test for the detection of red blood cell antibodies. The test is not to be used for pretransfusion screening or for the medical management of an alloimmunized . LAB [id number] ABO GROUP O LAB [id number] RH TYPE RH(D) POSITIVE Result Comment: For additional information, please refer to http://Fifteen Reasons.[employer] App/faq/RHR522 (This link is being provided for informational/ educational purposes only.) LAB [id number] RPR (DX) W/REFL TITER AND CONFIRMATORY TESTING NON-REACTIVE Normal NON-REACTIV E Result Comment: No laboratory evidence of syphilis. If recent exposure is suspected, submit a new sample in 2-4 weeks. LAB [id number] HEPATITIS B SURFACE ANTIGEN NON-REACTIVE Normal NON-REACTIV E Result Comment: For additional information, please refer to http://Fifteen Reasons.[employer]/faq/POL031 (This link is being provided for informational/ educational purposes only.) LAB [id number] RUBELLA AB (IGG), IMMUNE STATUS 3.05 Normal Index Result Comment: Index Interp retation ----- <0.90 Not consistent with immunity 0.90-0.99 Equivocal > or = 1.00 Consistent with immunity The presence of rubella IgG antibody suggests immunization or past or current infection with rubella virus. Performed By: #### 61190, 36 127 #### [facility] [address], [address] [place], [place] [address] Audit Officer: Ney Ahn MD TSH W/REFLEX TO FT4 Collected: 09/02/19 3:23 PM Status: F Source: [facility] TYPE CODE TESTS RESULT OUT OF RANGE REFERENCE UNITS LAB [id number] TSH W/REFLEX TO FT4 0.86 Normal mIU/L Result Comment: Reference Ra nge > or = 20 Years 0.40-4.50 Ranges First trimester 0.26-2.66 Second trimester 0.55-2.73 Third trimester 0.43-2.91 Performed By: #### 51116, 36 127 #### [facility] [address], [address] [place] [address] Audit Officer: Ney Ahn MD PREG SERUM QUANT Collected: 08/08/2024 12:32 PM Stat us: F Source: [facility] TYPE CODE TESTS RESULT OUT OF RANGE REFERENCE UNITS LAB HCG QUANTITATIVE(LO INC) HCG QUANTITATIVE 74150 High 0 - 6 mIU/mL Result Comment: Reference Ra nge: Male: <5 Female: Non: <5 1 - 7 days : 5 - 50 1 - 2 weeks: 50 - 500 2 - 3 weeks: 100 - 5000 3 - 4 weeks: 500 - 10,000 4 - 5 weeks: 1000 - 50,000 5 - 6 weeks: 10,000 - 100,000 6 - 8 weeks: 15,000 - 200,000 2 - 3 months: 10,000 - 100,000 2ND TRIMESTER 3000-50,000 3RD TRIMESTER 1000-50,000 Performed By: #### 614653 ## ## [facility],[address] [place] [address] HIV 1/2 ANTIGEN/ANTIBODY,FOU RTH GENERATION W/RFL Collected: 07/30/2024 11:42 AM Status: F Source: [facility] TYPE CODE TESTS RESULT OUT OF RANGE REFERENCE UNITS LAB [id number] HIV AG/AB, 4TH GEN NON-REACTIVE Normal NON-REACTIV E Result Comment: HIV-1 antige n and HIV-1/HIV-2 antibodies were not detected. There is no laboratory evidence of HIV infection. PLEASE NOTE: This information has been disclosed to you from records whose confidentiality may be protected by state law. If your state requires such protection, then the state law prohibits you from making any further disclosure of the information without the specific written consent of the person to whom it pertains, or as otherwise permitted by law. A general authorization for the release of medical or other information is NOT sufficient for this purpose. For additional information please refer to http://education.Helpa.[employer]/faq/VXW210 (This link is being provided for informational/ educational purposes only.) The performance of this assay has not been clinically validated in patients less than 2 years old. Performed By: #### 10747, 83 96, 00750 #### [facility] [address], [address] [place] [address] Audit Officer: Ney Ahn MD HCG, TOTAL, QN Collected: 11:42 AM Status: F Source: [facility] TYPE CODE TESTS RESULT OUT OF RANGE REFERENCE UNITS LAB [id number] HCG, TOTAL, QN 2960 High mIU/mL Result Comment: Verified by repeat analysis. Reference Range Non or premenopausal <5 Postmenopausal <10 Values from different assay methods may vary. The use of this assay to monitor or to diagnose patients with cancer or any condition unrelated to has not been cleared or approved by the FDA or the contaminated land consultant of the assay. Performed By: #### 36456, 83 96, 68249 #### [facility] [address], [address] [place] [address] Audit Officer: Ney Ahn MD RPR (DX) W/REFL TITER AND T. PALLIDUM AB, [place] Collected: 07/30/2024 11:42 AM Status: F Source: [facility] TYPE CODE TESTS RESULT OUT OF RANGE REFERENCE UNITS LAB [id number] RPR (DX) W/REFL TITER AND CONFIRMATORY TESTING NON-REACTIVE Normal NON-REACTIVE Result Comment: No laboratory evidence of syphilis. If recent exposure is suspected, submit a new sample in 2-4 weeks. Performed By: #### 88293, 83 96, 34006 #### [facility] [address], [address] [place] [address] Audit Officer: Ney Ahn MD BV/VAGINITIS PANEL DNA PROBE Collected: 07/30/2024 11:39 AM Status: F Source: [facility] TYPE CODE TESTS RESULT OUT OF RANGE REFERENCE UNITS LAB [id number] TRICHOMONAS : NOT DETECTED Normal NOT DETECTED LAB [id number] GARDNERELLA : NOT DETECTED Normal NOT DETECTED LAB [id number] EDWARD: NOT DETECTED Normal NOT DETECTED Performed By: #### 46225 ### # [facility] [address], [address] [place] [address] Audit Officer: Ney Ahn MD CHLAMYDIA/N. GONORRHOEAE RNA , TMA, UROGENITAL Collected: 07/30/2024 11:24 AM Status: F Source: [facility] TYPE CODE TESTS RESULT OUT OF RANGE REFERENCE UNITS LAB [id number] CHLAMYDIA TRACHOMATIS RNA, TMA, UROGENITAL NOT DETECTED Normal NOT DETECTED LAB [id number] NEISSERIA GONORRHOEAE RNA, TMA, UROGENITAL NOT DETECTED Normal NOT DETECTED LAB [id number] COMMENT Result Comment: The analytic al performance characteristics of this assay, when used to test SurePath(TM) specimens have been determined by [facility]. The modifications have not been cleared or approved by the FDA. This assay has been validated pursuant to the CLIA regulations and is used for clinical purposes. For additional information, please refer to https://education.Box Score Games/faq/LLM871 (This link is being provided for information/ educational purposes only.) Performed By: #### 71867 ### # [facility] [address], [address] [place] [address] Audit Officer: Ney Ahn MD ANKLE COMPLETE LT Observed: 07/14/2024 3:30 PM Status: F Source: [place] [id number] Patient: LYNN COLORADO Phone#: : 1995 Age: 28 Gender: F Pt. Type: Out Account: [id number] Location: [facility] Ordering: JUVENTINO SOTO Exam Date: 07/14/2024/15:23 Family Phys: Charge Code: 269514 Physician: Coke Order #: [id number] Dose#: PROCEDURE: X-RAY ANKLE COMPLETE LT MIN 3 VIEWS COMPARISON: None. INDICATIONS: Left ankle injury. FINDINGS: BONES: There is an avulsion fracture at lateral aspect of the foot. Deformity of the distal tibia, correlate for history of remote trauma. Talar dome is intact. Joint space is maintained. SOFT TISSUES: Soft tissue swelling overlying the lateral ankle. EFFUSION: None visible. OTHER: Negative. CONCLUSION: 1. Avulsion fracture of the lateral foot, possibly the calcaneus though evaluation is limited on radiograph. 2. Soft tissue swelling the lateral ankle Dictated by: Genesis Heller MD on 07/14/2024 at 16:45 Approved by: Genesis Heller MD on 07/14/2024 at 16:50 ALLERGIES DATE TYPE / CODE NAME / CODE REACTION SEVERITY SOURCE Drug Class/152755441(SNOME D CT) NO KNOWN ALLERGIES [facility] Miscellaneous Allergy/107555516(SNO MED CT) No Known Drug Allergies Moderate (Severity Modifier) (Qualifier Value) [facility] ENCOUNTERS ADMIT/DISCHARGE ACCOUNT NUMBER ADMITTING ENCOUNTER CLASS LOCATION SOURCE 05/09/2025/05/09/20 25 [id number] PARAG BANUELOS DO Emergency BuildinR oom: EROVF [facility] 05/09/2025/05/09/20 25 [id number] [facility] 03/16/2025/03/17/20 25 [id number] CONRAD RAMÍREZ CNM Inpatient Encounter BuildinR oom: 222 [facility] 03/14/2025/03/14/20 25 [id number] CONRAD RAMÍREZ CNM Ambulatory BuildinR oom: 212 [facility] 03/11/2025/03/11/20 25 [id number] YOUNG GILES Ambulatory BuildinR oom: 212 [facility] 03/02/2025 [id number] CONRAD RAMÍREZ CNM Ambulatory Building:Unkn own [facility] 01/10/2025/01/11/20 25 [id number] YOUNG GILES Ambulatory Building:Unkn own [facility] 01/08/2025/01/09/20 25 [id number] CECI BONILLA Emergency BuildinR oom: ERBed: 7 [facility] 10/01/2024/10/01/19 25 [id number] CONRAD RAMÍREZ CNM Ambulatory Building:Unkn own [facility] 09/02/2024 [id number] Ambulatory Building:Unkn own [facility] 08/08/2024/08/08/20 24 [id number] ANNE MARIE SPEARS Ambulatory Building:Unkn own [facility] 07/14/2024/07/14/20 24 [id number] JUVENTINO SOTO Ambulatory Building:Unkn own [facility] PAYERS ENCOUNTER GUARANTOR PAYER SUBSCRIBER SOURCE 05/09/2025 LYNN GAGE: [id number] [address] [address]Scw: (HP) Primary Insurance:[employer] OUTPATIENTPolicy Number: [id number] Date:Plan Name:B2 LYNN COLORADODOB: [id number] [address] [address] [facility] 05/09/2025 Secondary Insurance:[employer] MEDICAID OUTPATIENTPolicy Number: [id number] Date:Plan Name:X1 LYNN COLORADODOB: [id number] [address] [address] [facility] 05/09/2025 [facility] Insurance:[facility] ERPolicy Number: [id number] Date:[id number] Name:Fern COLORADODOB: [id number] [address] [address] [facility] 03/16/2025 LYNN SHOULTSDOB: [id number] [address] [address]Tzb: (HP) Primary Insurance:[employer] INPATIENTPolicy Number: [id number] Date:Plan Name:B2 LYNN COLORADODOB: [id number] [address] [address] [facility] 03/14/2025 LYNN CLEARYULTSDOB: [id number] [address] [address]Kxf: (HP) Primary Insurance:[facility] COMMERCIAL OUTPATIENTPolicy Number: [id number] Date:Plan Name:B2 LYNN COLORADODOB: [id number] [address] [address] [facility] 03/11/2025 LYNN CLEARYULTSDOB: [id number] [address] [address]Yao: (HP) Primary Insurance:[employer] COMMERCIAL OUTPATIENTPolicy Number: [id number] Date:Plan Name:Nilay COLORADODOB: [id number] [address] [facility] [place] [address] [facility] 03/02/2025 LYNN SHOULTSDOB: [facility]ARE CORPORATIONV[place], [place] [address]Pkw: (HP) Primary Insurance:[employer] COMMERCIAL OUTPATIENTPolicy Number: [id number] Date:Plan Name:Nilay COLORADODOB: [id number] 9 [facility] [address] [facility] 01/10/2025 LYNN CLEARYULTSDOB: [address] [address]Bmm: (HP) Primary Insurance:[employer] COMMERCIAL OUTPATIENTPolicy Number: [id number] Date:Plan Name:Nilay COLORADODOB: [id number] 9 [facility] [place] [address] [facility] 01/08/2025 LYNN CLEARYULTSDOB: [facility] CORPORATIONVITORLINDSBORG COMMUNITY HOSPITALGERALDLem[place], [place] [address]Ixd: (HP) Primary Insurance:[employer] COMMERCIAL OUTPATIENTPolicy Number: [id number] Date:Plan Name:Nilay COLORADODOB: [id number] 9 [facility] [address] [facility] 10/01/2024 LYNN CLEARYULTSDOB: [facility] CORPORATION[place], [place] [address]Zaw: (HP) Primary Insurance:[employer] COMMERCIAL OUTPATIENTPolicy Number: [id number] Date:Plan Name:Nilay COLORADODOB: [id number] [address] [address] [facility] 08/08/2024 LYNN CORWINB: [id number] [facility] CORPORATIONSHANIGER[place], [place] [address]Oje: (HP) Primary Insurance:[employer] OUTPATIENTPolicy Number: [id number] Date:Plan Name:Nilay Paul CORWINB: [id number] [address] [address] [facility] 07/14/2024 LYNN TAMDOB: [id number] [address] [address]Wcq: (HP) Primary Insurance:[employer] OUTPATIENTPolicy Number: [id number] Date:Plan Name:B2 LYNN CORWINB: [id number] [address] [address] [facility] 07/14/2024 Secondary Insurance:[facility] COMMUNITY PLAN OUTPATPolicy Number: [id number] Date:Plan Name:X4 LYNN CORWINB: [id number] [address] [address] [facility]
== END 2025-05-09 16:33 | disposition left against medical advice (07) ==
LOC: ED 16:42
PROVIDERS: PCP Internal Medicine
DX: R50.9 Fever, unspecified (principal); N64.4 Mastodynia; Z53.21 Procedure and treatment not carried out due to patient leaving prior to being seen by health care provider